=== PATIENT | female | born 1965 | race Caucasian/White ===

== ENCOUNTER 2019-01-29 10:36 | Inpatient (IN) | payer OTHER ==
[~2019-01-29] VITALS: Ht 160 cm; Wt 98.4 kg
[2019-01-29] MEDS ORDERED: ADENOSINE 2 ML ONE (10:48)
[2019-01-29] MEDS ORDERED: ASPIRIN 81 MG TAB PO STA (10:48)
[2019-01-29] MEDS ORDERED: DILTIAZEM 25 MG INJ ONE (10:51)
[2019-01-29] MEDS ORDERED: DILTIAZEM 25 MG INJ IV ONE (11:00)
[2019-01-29] MEDS ORDERED: DILTIAZEM-D5W 125MG/125ML DRIP 125 ML IV SCH (11:00)
[2019-01-29] MEDS ORDERED: ATOR20TA38 PO (12:17)
[2019-01-29] MEDS ORDERED: METF-849 PO (12:17)
[2019-01-29] MEDS ORDERED: LISI40TA3 PO (12:25)
[2019-01-29] MEDS ORDERED: NAPR-688 PO (12:25)
[2019-01-29] MEDS ORDERED: ASPI-903 PO (12:25)
[2019-01-29] MEDS ORDERED: HYDR25TA6 PO (12:25)
[2019-01-29] MEDS ORDERED: ACET1TAB40 PO (12:25)
[2019-01-29] MEDS ORDERED: IBUP-1542 PO (12:25)
--- NOTE | 2019-01-29 13:01 | ERD ---
ER Documentation Chief Complaint Chief Complaint chest pain, dizziness and feeling weak for a couple of weeks now HPI This is a 53-year-old female with a history of atrial fibrillation who underwent ablation back in March 2018. She does have paroxysmal A. fib. She said she felt like she went into A. fib again this morning with heart palpitations and some mild chest pressure. She says this happens frequently. She is already on m edication and is supposed to see a new powder mixer this week for her PAF. No shortness of breath diaphoresis. ROS All systems reviewed and are negative except as per history of present illness. Medications Home Meds Active Scripts Diltiazem Hcl* (Diltiazem XT) 120 Mg Capsule.sa, 120 MG PO DAILY, #30 CAP Prov:XIN ROCKWELL DO 01/29/19 Reported Medications Ibuprofen* (Motrin*) 600 Mg Tab, 600 MG PO Q6H PRN for PAIN, TAB 01/29/19 Acetaminophen with Codeine (Acetaminophen-Cod #3 Tablet) 1 Each Tablet, 1 TAB PO Q6H PRN for PAIN LEVEL 7-10, #7 TAB 01/29/19 Naproxen* (Naproxen*) 500 Mg Tablet, 500 MG PO DAILY, TAB 01/29/19 Aspirin* (Aspirin* Chew) 81 Mg Tab.chew, 81 MG PO DAILY, TAB.CHEW 01/29/19 Aspirin* (Aspirin* Chew) 81 Mg Tab.chew, 81 MG PO DAILY, TAB.CHEW 01/29/19 Hydrochlorothiazide* (Hydrochlorothiazide*) 25 Mg Tab, 25 MG PO DAILY, #30 TAB 01/29/19 Lisinopril* (Lisinopril*) 40 Mg Tablet, 40 MG PO DAILY, #30 TAB 01/29/19 Metformin* (Glucophage*) 500 Mg Tab, 500 MG PO WITH BREAKFAST DINNE, #30 TAB 01/29/19 Atorvastatin Calcium* (Atorvastatin Calcium*) 20 Mg Tablet, 10 MG PO QHS, #30 TAB 01/29/19 Allergies Allergies: Coded Allergies: No Known Allergy (Unverified , 01/29/19) PMhx/Soc Hx Miscellaneous Medical Probl: Yes (htn, tachycardia with ablasion ) Hx Alcohol Use: No Hx Substance Use: No Hx Tobacco Use: No Smoking Status: Never smoker FmHx Family History: No coronary disease Physical Exam Vitals Vital Signs Date Temp Pulse Resp B/P (MAP) Pulse Ox O2 O2 Flow FiO2 Time Delivery Rate 01/29/19 81 18 124/76 98 Nasal 13:54 (92) Cannula 01/29/19 80 18 126/88 98 Nasal 12:49 (101) Cannula 01/29/19 119 20 106/90 98 Room Air 11:28 (95) 01/29/19 Nasal 2 11:01 Cannula 01/29/19 98.3 170 18 137/103 100 10:45 (114) Physical Exam Const: Well-developed, well-nourished Head: Atraumatic, normocephalic Eyes: Normal Conjunctiva, PERRLA, EOMI, normal sclera, no nystagmus ENT: Normal External Ears, Nose and Mouth, moist mucus membranes. Neck: Full range of motion. No meningismus, no lymphadenopathy. Resp: Clear to auscultation bilaterally, no wheezing, rhonchi, rales Cardio: Tachycardia irregular rate and rhythm, no murmurs, S1 S2 present Abd: Soft, non tender x 4, non distended. Normal bowel sounds, no guarding or rebound, no pulsitile abdominal masses or bruits Skin: No petechiae or rashes, no ecchymosis , no maculopapular rash Back: No midline or flank tenderness Ext: No cyanosis, or edema, FROM x 4, normal inspection, neurovascularly intact x 4 Neur: Awake and alert, STR 5/5 x 4, sensation intact x 4, no focal findings, cerebellum intact Psych: Normal Mood and Affect Result Diagram: 01/29/19 1056 01/29/19 1056 Results 24 hrs Laboratory Tests Test 01/29/19 10:56 White Blood Count 9.6 10^3/ul Red Blood Count 5.04 10^6/ul Hemoglobin 13.9 g/dl Hematocrit 42.6 % Mean Corpuscular Volume 84.5 fl Mean Corpuscular Hemoglobin 27.6 pg Mean Corpuscular Hemoglobin Concent 32.6 g/dl Red Cell Distribution Width 14.3 % Platelet Count 427 10^3/UL Mean Platelet Volume 10.0 fl Immature Granulocytes % 0.200 % Neutrophils % 44.5 % Lymphocytes % 47.2 % Monocytes % 6.0 % Eosinophils % 1.3 % Basophils % 0.8 % Nucleated Red Blood Cells % 0.0 /100WBC Immature Granulocytes # 0.020 10^3/ul Neutrophils # 4.3 10^3/ul Lymphocytes # 4.5 10^3/ul Monocytes # 0.6 10^3/ul Eosinophils # 0.1 10^3/ul Basophils # 0.1 10^3/ul Nucleated Red Blood Cells # 0.0 10^3/ul Prothrombin Time 12.4 Sec Prothrombin Time Ratio 1.0 INR International Normalized Ratio 0.91 Activated Partial Thromboplast Time 29.2 Sec Sodium Level 142 mmol/L Potassium Level 4.2 mmol/L Chloride Level 103 mmol/L Carbon Dioxide Level 26 mmol/L Anion Gap 13 Blood Urea Nitrogen 12 mg/dl Creatinine 1.18 mg/dl Est Glomerular Filtrat Rate mL/min 48 mL/min Glucose Level 144 mg/dl Calcium Level 10.9 mg/dl Troponin I < 0.012 ng/ml B-Type Natriuretic Peptide 27 PG/ML Current Medications Medications Dose Sig/Lea Start Time Status Last (Trade) Ordered Route PRN Stop Time Admin Dose Reason Admin Aspirin 162 mg ONCE STAT 01/29/19 DC 01/29/19 (Aspirin) PO 10:48 11:27 01/29/19 10:51 Diltiazem 125 ml @ [id number] IV 01/29/19 01/29/19 HCl 10 mls/hr 11:00 11:27 Diltiazem 20 mg ONCE ONCE 01/29/19 DC 01/29/19 HCl IV 11:00 11:07 (Cardizem Iv) 01/29/19 11:01 Procedures/MDM EKG1: Rate/Rhythm: Atrial fibrillation with rapid ventricular response QRS, ST, QT: NORMAL DC, QRS, QT] Impression: A. fib with RVR EKG2: Rate/Rhythm: Atrial fibrillation with rapid ventricular response QRS, ST, QT: NORMAL DC, QRS, QT] Impression: A. fib with RVR After 2 IV bolus of Cardizem followed by Cardizem drip the patient spontaneously converted: EKG3: Rate/Rhythm: Normal sinus rhythm with PACs, left axis deviation heart rate 82 QRS, ST, QT: NORMAL DC, QRS, QT] Impression: NORMAL EKG Ordering MD: XIN ROCKWELL DO Location: E/R Room/Bed: PROCEDURE: XR Chest. CLINICAL INDICATION: chest pain TECHNIQUE: Single frontal view of the chest was obtained COMPARISON: None FINDINGS: The heart and mediastinum are within normal limits. There is mild elevation of the right diaphragm. The lungs are clear. There is no pleural effusion or pneumothorax. RPTAT: AA IMPRESSION: No acute disease. .Alexander Taylor MD, MD Date Time Electronically viewed and signed by .Alexander Taylor MD, on 01/29/2019 11:11 .S/ CC: XIN ROCKWELL DO [id number] The patient is now in sinus rhythm for a few hours of observation. I spoke with her powder mixer Dr. valencia, and reviewed the case with him. We will put her on diltiazem 120 mg at his suggestion and no anticoagulation at this time, and she needs to follow-up with her powder mixer at [facility] tomorrow, I did relay this information to her Critical Care Time: 30 minutes Treatments/Evaluations: Close monitoring and treatment of unstable vital signs, cardiorespiratory, and neurologic status, while maintaining tight balance of fluid, respiratory, and cardiac interventions. This time includes discussing the case with the patient and the patient's family. This time does not include all procedures stated elsewhere in this record. This time also includes reviewing old records, labs and radiological studies. This time includes examining and re- examining the patient. Additionally, this time also includes arranging care with admitting and consulting physicians. Departure Diagnosis: Primary Impression: Paroxysmal atrial fibrillation with rapid ventricular response Condition: Stable XIN ROCKWELL DO Jan 29, 2019 13:01
[2019-01-29] MEDS ORDERED: DILT120C79 PO (14:18)
[2019-01-29] MEDS ORDERED: morphine 4 MG/ML VIAL IV STA (14:49)
[2019-01-29] MEDS ORDERED: ONDANSETRON 4 MG INJ IV STA (14:49)
[2019-01-29] MEDS ORDERED: ONDANSETRON 4 MG INJ ONE (14:50)
[2019-01-29] MEDS ORDERED: morphine 4 MG/ML VIAL ONE (14:51)
[2019-01-29] MEDS ORDERED: ONDANSETRON 4 MG INJ IV PRN (15:00)
[2019-01-29] MEDS ORDERED: ACETAMINOPHEN 325 MG TAB PO PRN (15:00)
--- NOTE | 2019-01-29 16:33 | HP ---
Date/Time of Note Date/Time of Note DATE: 01/29/19 TIME: 16:25 Assessment/Plan VTE Prophylaxis SCD applied (from Nsg): Yes Pharmacological prophylaxis: heparin Lines/Catheters IV Catheter Type (from Nrsg): Saline Lock Assessment/Plan Hospital Course 53 yo female with h/o A Fib s/p ablation, DMII, hypertension presenting with pal pitations with associated lightheadedness and chest pain, found to have rapid atrial fibrillation Rapid A Fib: - Continue with diltiazem PO - Meets criteria for DOAC - Cardiology consultation pending DMII: - Basal/bolus insulin Hypertension: - Continue home meds Hypercalcemia: - Likely related to HCTZ. Will hold this and monitor CKD II vs COLT: - Monitor creatinine Dc likely tomorrow if stable Result Diagram: 01/29/19 1056 01/29/19 1056 Results 24hrs Laboratory Tests Test 01/29/19 10:56 White Blood Count 9.6 Red Blood Count 5.04 Hemoglobin 13.9 Hematocrit 42.6 Mean Corpuscular Volume 84.5 Mean Corpuscular Hemoglobin 27.6 L Mean Corpuscular Hemoglobin Concent 32.6 Red Cell Distribution Width 14.3 Platelet Count 427 H Mean Platelet Volume 10.0 Immature Granulocytes % 0.200 Neutrophils % 44.5 Lymphocytes % 47.2 Monocytes % 6.0 Eosinophils % 1.3 Basophils % 0.8 Nucleated Red Blood Cells % 0.0 Immature Granulocytes # 0.020 Neutrophils # 4.3 Lymphocytes # 4.5 H Monocytes # 0.6 Eosinophils # 0.1 Basophils # 0.1 Nucleated Red Blood Cells # 0.0 Prothrombin Time 12.4 Prothrombin Time Ratio 1.0 INR International Normalized Ratio 0.91 Activated Partial Thromboplast Time 29.2 Sodium Level 142 Potassium Level 4.2 Chloride Level 103 Carbon Dioxide Level 26 Anion Gap 13 Blood Urea Nitrogen 12 Creatinine 1.18 H Est Glomerular Filtrat Rate mL/min 48 L Glucose Level 144 Calcium Level 10.9 H Troponin I < 0.012 B-Type Natriuretic Peptide 27 HPI/ROS Admit Date/Time Admit Date/Time Hx of Present Illness 53 yo female with h/o A Fib, DMII, HTN presetns with palpitations and chest pain Patient had A FIb ablation March 2018 at [facility]. A Fib has recurred. Over past week she has been having frequent episodes of palpitations which are accompanied by chest pressure and lightheadedness. She had a severe episode t marivel for which she came to the ED. She is not currently taking any antiarrythmic mediations and is only on aspirin 81 daily. She does not complain of angina. Only has chest pain with palpitation episodes. However, she does have chronic pain in her left shoulder, however she says this is unrelated to her presenting complaint. ROS Constitutional: no complaints, improved Eyes: no complaints ENT: no complaints Respiratory: no complaints Cardiovascular: no complaints Gastrointestinal: no complaints Genitourinary: no complaints Musculoskeletal: no complaints Skin: no complaints Neurologic: no complaints Endocrine: no complaints Lymphatic: no complaints Psychological: no complaints, nl mood/affect Immunologic: no complaints PMH/Family/Social Past Medical History Atrial fibrillation Medications Current Medications Diltiazem HCl 125 ml @ 10 mls/hr [id number] IV Last administered on 01/29/19at 11:27; Admin Dose 10 MLS/HR; Start 01/29/19 at 11:00 Ondansetron HCl (Zofran Inj) 4 mg ER BRIDGE PRN IV NAUSEA/VOMITING; Start 01/29/19 at 15:00; Stop 01/30/19 at 14:59 Acetaminophen (Tylenol Tab) 650 mg ER BRIDGE PRN PO .MILD PAIN 1-3 OR TEMP; Start 01/29/19 at 15:00; Stop 01/30/19 at 14:59 Coded Allergies: No Known Allergy (Unverified , 01/29/19) Past Surgical History Past Surgical Hx: no surgical history Family History Significant Family History: no pertinent family hx Social History Alcohol Use: none Smoking Status: Never smoker Drug Use: none Exam/Review of Systems Vital Signs Vitals Vital Signs Date Temp Pulse Resp B/P (MAP) Pulse Ox O2 O2 Flow FiO2 Time Delivery Rate 01/29/19 98.3 63 20 127/68 98 Nasal 16:03 (87) Cannula 01/29/19 2 11:01 Exam Constitutional: alert, oriented, well developed Psych: no complaints, nl mood/affect Head: normocephalic, atraumatic Eyes: nl conjunctiva, EOMI, nl lids, nl sclera, PERRL ENMT: nl external ears & nose, nl lips & teeth, nl nasal mucosa & septum Neck: supple, non-tender Respiratory: clear to auscultation, normal air movement Cardiovascular: regular rate and rhythm, nl pulses Gastrointestinal: soft, nl liver, spleen, non-tender Musculoskeletal: nl extremities to inspection Extremities: normal pulses Neurological: MOLD MECHANIC II-XII intact, nl mental status, nl speech, nl strength Skin: nl turgor; No rash or lesions Lymph: nl lymph nodes BRAULIO CHAMBERLAIN MD Jan 29, 2019 16:33
[2019-01-29] MEDS ORDERED: ACETAMINOPHEN/CODEINE #3 TAB PO PRN (17:00)
[2019-01-29] MEDS ORDERED: DILTIAZEM 30 MG TAB NGT SCH (17:00)
[2019-01-29] MEDS ORDERED: NACL 0.9% 3 ML SYG IV SCH (17:00)
[2019-01-29] MEDS ORDERED: HYDROCODONE/APAP (5/325) TAB PO PRN ×2 (17:00→18:00)
[2019-01-29] MEDS ORDERED: GLUCOSE GEL 15 GRAM TUBE BUCCAL PRN ×2 (17:30)
[2019-01-29] MEDS ORDERED: GLUCOSE GEL 15 GRAM TUBE PO PRN ×4 (17:30)
[2019-01-29] MEDS ORDERED: DEXTROSE 50% 50 ML SYRINGE IV PRN ×4 (17:30)
[2019-01-29] MEDS ORDERED: GLUCAGON 1 MG INJ IM PRN ×2 (17:30)
[2019-01-29] MEDS: INSULIN ASPART [NOVOLOG] 3 ML PEN SC SCH ×2 (18:00→20:53)
[2019-01-29 18:10] VITALS: BP 153/84; PULSE 77; RESP 18
[2019-01-29 18:32] VITALS: Ht 160 cm; Wt 98.4 kg
[2019-01-29 18:35] VITALS: PULSE 79
[2019-01-29 20:00] VITALS: BP 108/75; PULSE 63; PULSE 76; RESP 18
[2019-01-29] MEDS ORDERED: INSULIN GLARGINE [LANTus] (100 UNITS/ML) SYG SC SCH (20:00)
[2019-01-29] MEDS ORDERED: ONDANSETRON 4 MG TAB PO PRN (20:30)
[2019-01-29] MEDS ORDERED: METOPROLOL 5 MG INJ IV PRN (20:30)
[2019-01-29] MEDS: ATORVASTATIN 10 MG TAB PO SCH (20:53)
[2019-01-29] MEDS ORDERED: MECLIZINE 12.5 MG TAB PO ONE (21:30)
[2019-01-30] VITALS (10 sets, daily range): BP systolic 92–117; BP diastolic 50–68; PULSE 55–93; RESP 17–20
[2019-01-30] MEDS ORDERED: SOD CHLORIDE 0.9% 500 ML IV ONE (01:00)
[2019-01-30] MEDS: INSULIN ASPART [NOVOLOG] 3 ML PEN SC SCH ×4 (07:55→20:09)
[2019-01-30] MEDS ORDERED: INFLUENZA VIRUS VACCINE 0.5 ML (DISPENSING) IM* ONE (09:00)
[2019-01-30] MEDS ORDERED: LISINOPRIL 20 MG TAB PO SCH (09:00)
--- NOTE | 2019-01-30 10:21 | CONS ---
Consultation Date/Type/Reason Admit Date/Time Type of Consult Cardiology Date/Time of Note DATE: 01/30/19 TIME: 10:20 Hx of Present Illness 53 yo with parox a. fib - s/p ablation - add ASA 325 now - converted to sinus - f/up with [facility] cardiology whre she had ablation. # [id number] Past Medical History Home Meds Active Scripts Diltiazem Hcl* (Diltiazem XT) 120 Mg Capsule.sa, 120 MG PO DAILY, #30 CAP Prov:TIFFANYFRANCOSHELBYXIN A. DO 01/29/19 Reported Medications Ibuprofen* (Motrin*) 600 Mg Tab, 600 MG PO Q6H PRN for PAIN, TAB 01/29/19 Acetaminophen with Codeine (Acetaminophen-Cod #3 Tablet) 1 Each Tablet, 1 TAB PO Q6H PRN for PAIN LEVEL 7-10, #7 TAB 01/29/19 Naproxen* (Naproxen*) 500 Mg Tablet, 500 MG PO DAILY, TAB 01/29/19 Aspirin* (Aspirin* Chew) 81 Mg Tab.chew, 81 MG PO DAILY, TAB.CHEW 01/29/19 Aspirin* (Aspirin* Chew) 81 Mg Tab.chew, 81 MG PO DAILY, TAB.CHEW 01/29/19 Hydrochlorothiazide* (Hydrochlorothiazide*) 25 Mg Tab, 25 MG PO DAILY, #30 TAB 01/29/19 Lisinopril* (Lisinopril*) 40 Mg Tablet, 40 MG PO DAILY, #30 TAB 01/29/19 Metformin* (Glucophage*) 500 Mg Tab, 500 MG PO WITH BREAKFAST DINNE, #30 TAB 01/29/19 Atorvastatin Calcium* (Atorvastatin Calcium*) 20 Mg Tablet, 10 MG PO QHS, #30 TAB 01/29/19 Medications Current Medications Diltiazem HCl (Cardizem) 30 mg Q8 NGT Last administered on 01/29/19at 18:47; Admin Dose 30 MG; Start 01/29/19 at 17:00; Status Hold IV Flush (NS 3 ml) 3 ml PER PROTOCOL IV ; Start 01/29/19 at 17:00 Acetaminophen/ Hydrocodone Bitart (Aurora (5/325)) 2 tab Q6H PRN PO .SEVERE PAIN 7-10; Start 01/29/19 at 17:00 Insulin Glargine (Lantus) 12 units DAILY@2000 SC Last administered on 01/29/19at 21:09; Admin Dose 12 UNITS; Start 01/29/19 at 20:00 Insulin Aspart (Novolog Insulin Pen) NOVOLOG *MILD* ALGORITHM WITH MEALS BEDTIME SC ; Start 01/29/19 at 18:00 Atorvastatin Calcium (Lipitor) 10 mg QHS PO Last administered on 01/29/19at 20:53; Admin Dose 10 MG; Start 01/29/19 at 21:00 Glucose (Glutose) 15 gm Q15M PRN PO DECREASED GLUCOSE; Start 01/29/19 at 17:30 Glucose (Glutose) 22.5 gm Q15M PRN PO DECREASED GLUCOSE; Start 01/29/19 at 17:30 Dextrose (D50w Syringe) 25 ml Q15M PRN IV DECREASED GLUCOSE; Start 01/29/19 at 17:30 Dextrose (D50w Syringe) 50 ml Q15M PRN IV DECREASED GLUCOSE; Start 01/29/19 at 17:30 Glucagon (Glucagen) 1 mg Q15M PRN IM DECREASED GLUCOSE; Start 01/29/19 at 17:30 Glucose (Glutose) 15 gm Q15M PRN BUCCAL DECREASED GLUCOSE; Start 01/29/19 at 17:30 Miscellaneous Information 1 ea NOTE XX ; Start 01/29/19 at 17:30 Glucose (Glutose) 15 gm Q15M PRN PO DECREASED GLUCOSE; Start 01/29/19 at 17:30 Glucose (Glutose) 22.5 gm Q15M PRN PO DECREASED GLUCOSE; Start 01/29/19 at 17:30 Dextrose (D50w Syringe) 25 ml Q15M PRN IV DECREASED GLUCOSE; Start 01/29/19 at 17:30 Dextrose (D50w Syringe) 50 ml Q15M PRN IV DECREASED GLUCOSE; Start 01/29/19 at 17:30 Glucagon (Glucagen) 1 mg Q15M PRN IM DECREASED GLUCOSE; Start 01/29/19 at 17:30 Glucose (Glutose) 15 gm Q15M PRN BUCCAL DECREASED GLUCOSE; Start 01/29/19 at 17:30 Acetaminophen/ Hydrocodone Bitart (Aurora (5/325)) 1 tab Q6H PRN PO PAIN 7-10; Start 01/29/19 at 18:00 Ondansetron HCl (Zofran Tab) 4 mg Q4 PRN PO NAUSEA AND/OR VOMITING Last administered on 01/29/19at 20:53; Admin Dose 4 MG; Start 01/29/19 at 20:30 Metoprolol Tartrate (Lopressor) 2.5 mg Q6H PRN IV ELEVATED HEART RATE; Start 01/29/19 at 20:30 Allergies: Coded Allergies: No Known Allergy (Unverified , 01/29/19) Past Surgical History Past Surgical Hx: no surgical history Social History Alcohol Use: none Smoking Status: Never smoker Drug Use: none Exam/Review of Systems Vital Signs Vitals Vital Signs Date Temp Pulse Resp B/P (MAP) Pulse Ox O2 O2 Flow FiO2 Time Delivery Rate 01/30/19 57 08:17 01/30/19 Nasal 2.0 07:46 Cannula 01/30/19 97.9 20 92/50 (64) 98 07:14 Intake and Output 01/29/19 01/29/19 01/30/19 1515:00 23:00 07:00 IntakeIntake Total 800 ml BalanceBalance 800 ml Labs Result Diagram: 01/30/19 0657 01/30/19 0657 Results 24hrs Laboratory Tests Test 01/29/19 10:56 01/29/19 18:18 01/29/19 18:54 01/29/19 20:51 White Blood Count 9.6 Red Blood Count 5.04 Hemoglobin 13.9 Hematocrit 42.6 Mean Corpuscular 84.5 Volume Mean Corpuscular 27.6 L Hemoglobin Mean Corpuscular 32.6 Hemoglobin Concent Red Cell 14.3 Distribution Width Platelet Count 427 H Mean Platelet Volume 10.0 Immature 0.200 Granulocytes % Neutrophils % 44.5 Lymphocytes % 47.2 Monocytes % 6.0 Eosinophils % 1.3 Basophils % 0.8 Nucleated Red Blood 0.0 Cells % Immature 0.020 Granulocytes # Neutrophils # 4.3 Lymphocytes # 4.5 H Monocytes # 0.6 Eosinophils # 0.1 Basophils # 0.1 Nucleated Red Blood 0.0 Cells # Prothrombin Time 12.4 Prothrombin Time 1.0 Ratio INR International 0.91 Normalized Ratio Activated 29.2 Partial Thromboplast Time Sodium Level 142 Potassium Level 4.2 Chloride Level 103 Carbon Dioxide Level 26 Anion Gap 13 Blood Urea Nitrogen 12 Creatinine 1.18 H Est Glomerular 48 L Filtrat Rate mL/min Glucose Level 144 Calcium Level 10.9 H Troponin I < 0.012 < 0.012 B-Type Natriuretic 27 Peptide Bedside Glucose 92 127 Test 01/30/19 06:57 01/30/19 08:04 White Blood Count 5.4 # Red Blood Count 4.23 Hemoglobin 11.7 L Hematocrit 37.1 Mean Corpuscular 87.7 Volume Mean Corpuscular 27.7 L Hemoglobin Mean Corpuscular 31.5 L Hemoglobin Concent Red Cell 14.4 Distribution Width Platelet Count 313 # Mean Platelet Volume 9.9 Immature 0.400 Granulocytes % Neutrophils % 47.2 Lymphocytes % 41.4 Monocytes % 7.4 Eosinophils % 2.9 Basophils % 0.7 Nucleated Red Blood 0.0 Cells % Immature 0.020 Granulocytes # Neutrophils # 2.6 Lymphocytes # 2.3 Monocytes # 0.4 Eosinophils # 0.2 Basophils # 0.0 Nucleated Red Blood 0.0 Cells # Sodium Level 143 Potassium Level 4.4 Chloride Level 103 Carbon Dioxide Level 30 Anion Gap 10 Blood Urea Nitrogen 18 Creatinine 1.48 H Est Glomerular 37 L Filtrat Rate mL/min Glucose Level 99 # Hemoglobin A1c 6.4 H Calcium Level 9.9 Total Bilirubin 0.4 Direct Bilirubin 0.00 Indirect Bilirubin 0.4 Aspartate Amino 18 Transf (AST/SGOT) Alanine 11 L Aminotransferase (AL T/SGPT) Alkaline Phosphatase 84 Total Protein 7.0 Albumin 3.9 Globulin 3.10 Albumin/Globulin 1.25 Ratio Thyroid Stimulating 1.140 Hormone (TSH) Bedside Glucose 86 Medications Medications Current Medications Diltiazem HCl (Cardizem) 30 mg Q8 NGT Last administered on 01/29/19at 18:47; Admin Dose 30 MG; Start 01/29/19 at 17:00; Status Hold IV Flush (NS 3 ml) 3 ml PER PROTOCOL IV ; Start 01/29/19 at 17:00 Acetaminophen/ Hydrocodone Bitart (Aurora (5/325)) 2 tab Q6H PRN PO .SEVERE PAIN 7-10; Start 01/29/19 at 17:00 Insulin Glargine (Lantus) 12 units DAILY@2000 SC Last administered on 01/29/19at 21:09; Admin Dose 12 UNITS; Start 01/29/19 at 20:00 Insulin Aspart (Novolog Insulin Pen) NOVOLOG *MILD* ALGORITHM WITH MEALS BEDTIME SC ; Start 01/29/19 at 18:00 Atorvastatin Calcium (Lipitor) 10 mg QHS PO Last administered on 01/29/19at 20:53; Admin Dose 10 MG; Start 01/29/19 at 21:00 Glucose (Glutose) 15 gm Q15M PRN PO DECREASED GLUCOSE; Start 01/29/19 at 17:30 Glucose (Glutose) 22.5 gm Q15M PRN PO DECREASED GLUCOSE; Start 01/29/19 at 17:30 Dextrose (D50w Syringe) 25 ml Q15M PRN IV DECREASED GLUCOSE; Start 01/29/19 at 17:30 Dextrose (D50w Syringe) 50 ml Q15M PRN IV DECREASED GLUCOSE; Start 01/29/19 at 17:30 Glucagon (Glucagen) 1 mg Q15M PRN IM DECREASED GLUCOSE; Start 01/29/19 at 17:30 Glucose (Glutose) 15 gm Q15M PRN BUCCAL DECREASED GLUCOSE; Start 01/29/19 at 17:30 Miscellaneous Information 1 ea NOTE XX ; Start 01/29/19 at 17:30 Glucose (Glutose) 15 gm Q15M PRN PO DECREASED GLUCOSE; Start 01/29/19 at 17:30 Glucose (Glutose) 22.5 gm Q15M PRN PO DECREASED GLUCOSE; Start 01/29/19 at 17:30 Dextrose (D50w Syringe) 25 ml Q15M PRN IV DECREASED GLUCOSE; Start 01/29/19 at 17:30 Dextrose (D50w Syringe) 50 ml Q15M PRN IV DECREASED GLUCOSE; Start 01/29/19 at 17:30 Glucagon (Glucagen) 1 mg Q15M PRN IM DECREASED GLUCOSE; Start 01/29/19 at 17:30 Glucose (Glutose) 15 gm Q15M PRN BUCCAL DECREASED GLUCOSE; Start 01/29/19 at 17:30 Acetaminophen/ Hydrocodone Bitart (Aurora (5/325)) 1 tab Q6H PRN PO PAIN 7-10; Start 01/29/19 at 18:00 Ondansetron HCl (Zofran Tab) 4 mg Q4 PRN PO NAUSEA AND/OR VOMITING Last administered on 01/29/19at 20:53; Admin Dose 4 MG; Start 01/29/19 at 20:30 Metoprolol Tartrate (Lopressor) 2.5 mg Q6H PRN IV ELEVATED HEART RATE; Start 01/29/19 at 20:30 LENSKY,MARLYN MD Jan 30, 2019 10:21
--- NOTE | 2019-01-30 10:53 | CONS ---
DATE OF ADMISSION: 01/29/2019 DATE OF CONSULTATION: 01/30/2019 TYPE OF CONSULTATION: Cardiology. REFERRING PHYSICIAN: Dr. Duckworth. REASON FOR EVALUATION: Atrial fibrillation with rapid perceived response. HISTORY OF PRESENT ILLNESS: The patient is a 53-year-old woman with prior history of atrial fibrilla tion, history of ablation at [facility] in March of this year, comes in hospital now f or evaluation of palpitation. She was noted to be in atrial fibrillation with rapid ventricular resp onse in the emergency department, but she converted to sinus rhythm. Now, the patient is currently h emodynamically stable and in sinus rhythm. She has a follow up with doctor at [facility] whose name she cannot recall. I think for now we will be going to treat conservatively. Continue anticoagulation s trategy and follow expectedly with outside for followup. PAST MEDICAL HISTORY: Hypertension, dyslipidemia, history of diabetes, history of paroxysmal atrial fibrillation status post ablation in [facility] in March of last year. ALLERGIES: NOT KNOWN. SOCIAL HISTORY: She does not smoke, does not drink, does not drink. FAMILY HISTORY: Negative for sudden cardiac or premature coronary artery disease. MEDICATIONS: Here include: 1. Lipitor 10 mg once a day. 2. Metoprolol tartrate 2.5 mg IV. 3. Diltiazem. 4. She was on aspirin prior. REVIEW OF SYSTEMS: CONSTITUTIONAL: No fevers, no chills, no recent weight. HEENT: No changes. CARDIAC: Chest pain reported. RESPIRATORY: Short of breath, acute on chronic. GASTROINTESTINAL: No nausea, vomiting. GENITOURINARY: No dysuria or hematuria. NEUROLOGIC: No focal. HEMATOLOGIC: No easy bruising. PSYCHIATRIC: No history of psychiatric illness. PHYSICAL EXAMINATION: VITAL SIGNS: Temperature is 97.8, heart rate 57 now, blood pressure 92/50. GENERAL: She is well-nourished woman in no acute distress, alert and oriented x3, aware of her condi tion. HEAD: Normocephalic, atraumatic. Eyes anicteric. NECK: Supple. JVD 6 cm. There is no lymphadenopathy, no thyromegaly. HEART: Regular, soft. 1/6 systolic murmur. PMI is minimally displaced. S1, S2. LUNGS: Coarse to base. ABDOMEN: Distended, bowel sounds are present. There is no hepatosplenomegaly. EXTREMITIES: Show no clubbing, cyanosis, or edema. LABORATORY DATA: White blood cell count 5.4, hemoglobin 11.7, platelets 313. Her INR is 1.0. Sodiu m 143, potassium 4.4, BUN 18, creatinine 1.48. Troponin negative 0.012. ASSESSMENT AND PLAN: 1. Paroxysmal atrial fibrillation. The patient is with paroxysmal atrial fibrillation. It appears that she did have an ablation at [facility] in March of last year which did not work. 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 She converted to sinus. I think outpatient for followup w ould be reasonable. 2. Secondary heart state. The patient is in second stage. I will initiate Aspirin 325 mg p.o. righ t now unless there is a contraindication. 3. Diabetes. Patient is on medical management. Continue to monitor closely. We will follow. 4. Premature ventricular contractions. The patient's PACs post-cardioversion, blood pressure low. I am not sure if she will be able to tolerate any significant dose of beta-franchesca at this particular point in time. I would like to thank Dr. Duckworth for referring this patient for my evaluation. Dictated By: MARLYN OH MD ML/NTS Conf#: [id number] DID#: [id number] CC: BRAULIO DUCKWORTH MD; SHAY YANCEY MD;*End*
[2019-01-30] MEDS ORDERED: ACETAMINOPHEN 325 MG TAB PO PRN (11:12)
--- NOTE | 2019-01-30 13:30 | PN ---
Date/Time of Note Date/Time of Note DATE: 01/30/19 TIME: 13:29 Assessment/Plan VTE Prophylaxis Risk score (from Nsg)>0 risk: 1 SCD applied (from Nsg): Yes Pharmacological prophylaxis: heparin Lines/Catheters IV Catheter Type (from Nrsg): Saline Lock Urinary Cath still in place: No Assessment/Plan Hospital Course 53 yo female with h/o A Fib s/p ablation, DMII, hypertension presenting with palpitations with associated lightheadedness and chest pain, found to have rapid atrial fibrillation Rapid A Fib: - Stop diltiazem given adverse reaction. Currently sinus matteo. Will continue to monitor and consider discharge tomorrow on PO metoprolol - Meets criteria for DOAC - Cardiology consultation appreciated DMII: - Basal/bolus insulin Hypertension: - Continue home meds Hypercalcemia: - Likely related to HCTZ. Will hold this and monitor CKD II vs COLT: - Monitor creatinine Dc likely tomorrow if stable Result Diagram: 01/30/19 0657 01/30/19 0657 Results 24hrs Laboratory Tests Test 01/29/19 18:18 01/29/19 18:54 01/29/19 20:51 01/30/19 06:57 Bedside Glucose 92 127 Troponin I < 0.012 White Blood Count 5.4 # Red Blood Count 4.23 Hemoglobin 11.7 L Hematocrit 37.1 Mean Corpuscular 87.7 Volume Mean Corpuscular 27.7 L Hemoglobin Mean Corpuscular 31.5 L Hemoglobin Concent Red Cell 14.4 Distribution Width Platelet Count 313 # Mean Platelet Volume 9.9 Immature 0.400 Granulocytes % Neutrophils % 47.2 Lymphocytes % 41.4 Monocytes % 7.4 Eosinophils % 2.9 Basophils % 0.7 Nucleated Red Blood 0.0 Cells % Immature 0.020 Granulocytes # Neutrophils # 2.6 Lymphocytes # 2.3 Monocytes # 0.4 Eosinophils # 0.2 Basophils # 0.0 Nucleated Red Blood 0.0 Cells # Sodium Level 143 Potassium Level 4.4 Chloride Level 103 Carbon Dioxide Level 30 Anion Gap 10 Blood Urea Nitrogen 18 Creatinine 1.48 H Est Glomerular 37 L Filtrat Rate mL/min Glucose Level 99 # Hemoglobin A1c 6.4 H Calcium Level 9.9 Total Bilirubin 0.4 Direct Bilirubin 0.00 Indirect Bilirubin 0.4 Aspartate Amino 18 Transf (AST/SGOT) Alanine 11 L Aminotransferase (AL T/SGPT) Alkaline Phosphatase 84 Total Protein 7.0 Albumin 3.9 Globulin 3.10 Albumin/Globulin 1.25 Ratio Thyroid Stimulating 1.140 Hormone (TSH) Test 01/30/19 08:04 01/30/19 11:56 Bedside Glucose 86 103 Subjective 24 Hr Interval Summary Free Text/Dictation Had adverse reaction to diltiazem Became hypotensive and nauseous Exam/Review of Systems Exam Vitals Vital Signs Date Temp Pulse Resp B/P (MAP) Pulse Ox O2 O2 Flow FiO2 Time Delivery Rate 01/30/19 93 12:09 01/30/19 98.0 20 108/64 100 11:15 (79) 01/30/19 Nasal 2.0 07:46 Cannula Intake and Output 01/29/19 01/29/19 01/30/19 1515:00 23:00 07:00 IntakeIntake Total 800 ml BalanceBalance 800 ml Constitutional: alert, oriented, well developed Psych: no complaints, nl mood/affect Head: normocephalic, atraumatic Eyes: nl conjunctiva, EOMI, nl lids, nl sclera, PERRL ENMT: nl external ears & nose, nl lips & teeth, nl nasal mucosa & septum Neck: supple, non-tender Respiratory: clear to auscultation, normal air movement Cardiovascular: regular rate and rhythm, nl pulses Gastrointestinal: soft, nl liver, spleen, non-tender Musculoskeletal: nl extremities to inspection, nl gait and stance Extremities: normal pulses 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, nl mental status, nl speech, nl strength Skin: nl turgor; No rash or lesions Lymph: nl lymph nodes Results Results 24hrs Laboratory Tests Test 01/29/19 18:18 01/29/19 18:54 01/29/19 20:51 01/30/19 06:57 Bedside Glucose 92 127 Troponin I < 0.012 White Blood Count 5.4 # Red Blood Count 4.23 Hemoglobin 11.7 L Hematocrit 37.1 Mean Corpuscular 87.7 Volume Mean Corpuscular 27.7 L Hemoglobin Mean Corpuscular 31.5 L Hemoglobin Concent Red Cell 14.4 Distribution Width Platelet Count 313 # Mean Platelet Volume 9.9 Immature 0.400 Granulocytes % Neutrophils % 47.2 Lymphocytes % 41.4 Monocytes % 7.4 Eosinophils % 2.9 Basophils % 0.7 Nucleated Red Blood 0.0 Cells % Immature 0.020 Granulocytes # Neutrophils # 2.6 Lymphocytes # 2.3 Monocytes # 0.4 Eosinophils # 0.2 Basophils # 0.0 Nucleated Red Blood 0.0 Cells # Sodium Level 143 Potassium Level 4.4 Chloride Level 103 Carbon Dioxide Level 30 Anion Gap 10 Blood Urea Nitrogen 18 Creatinine 1.48 H Est Glomerular 37 L Filtrat Rate mL/min Glucose Level 99 # Hemoglobin A1c 6.4 H Calcium Level 9.9 Total Bilirubin 0.4 Direct Bilirubin 0.00 Indirect Bilirubin 0.4 Aspartate Amino 18 Transf (AST/SGOT) Alanine 11 L Aminotransferase (AL T/SGPT) Alkaline Phosphatase 84 Total Protein 7.0 Albumin 3.9 Globulin 3.10 Albumin/Globulin 1.25 Ratio Thyroid Stimulating 1.140 Hormone (TSH) Test 01/30/19 08:04 01/30/19 11:56 Bedside Glucose 86 103 Medications Medication Current Medications IV Flush (NS 3 ml) 3 ml PER PROTOCOL IV ; Start 01/29/19 at 17:00 Acetaminophen/ Hydrocodone Bitart ([place] (5/325)) 2 tab Q6H PRN PO .SEVERE PAIN 7-10; Start 01/29/19 at 17:00 Insulin Aspart (Novolog Insulin Pen) NOVOLOG *MILD* ALGORITHM WITH MEALS BEDTIME SC ; Start 01/29/19 at 18:00 Atorvastatin Calcium (Lipitor) 10 mg QHS PO Last administered on 01/29/19at 20:53; Admin Dose 10 MG; Start 01/29/19 at 21:00 Glucose (Glutose) 15 gm Q15M PRN PO DECREASED GLUCOSE; Start 01/29/19 at 17:30 Glucose (Glutose) 22.5 gm Q15M PRN PO DECREASED GLUCOSE; Start 01/29/19 at 17:30 Dextrose (D50w Syringe) 25 ml Q15M PRN IV DECREASED GLUCOSE; Start 01/29/19 at 17:30 Dextrose (D50w Syringe) 50 ml Q15M PRN IV DECREASED GLUCOSE; Start 01/29/19 at 17:30 Glucagon (Glucagen) 1 mg Q15M PRN IM DECREASED GLUCOSE; Start 01/29/19 at 17:30 Glucose (Glutose) 15 gm Q15M PRN BUCCAL DECREASED GLUCOSE; Start 01/29/19 at 17:30 Miscellaneous Information 1 ea NOTE XX ; Start 01/29/19 at 17:30 Glucose (Glutose) 15 gm Q15M PRN PO DECREASED GLUCOSE; Start 01/29/19 at 17:30 Glucose (Glutose) 22.5 gm Q15M PRN PO DECREASED GLUCOSE; Start 01/29/19 at 17:30 Dextrose (D50w Syringe) 25 ml Q15M PRN IV DECREASED GLUCOSE; Start 01/29/19 at 17:30 Dextrose (D50w Syringe) 50 ml Q15M PRN IV DECREASED GLUCOSE; Start 01/29/19 at 17:30 Glucagon (Glucagen) 1 mg Q15M PRN IM DECREASED GLUCOSE; Start 01/29/19 at 17:30 Glucose (Glutose) 15 gm Q15M PRN BUCCAL DECREASED GLUCOSE; Start 01/29/19 at 17:30 Acetaminophen/ Hydrocodone Bitart ([place] (5/325)) 1 tab Q6H PRN PO PAIN 7-10; Start 01/29/19 at 18:00 Ondansetron HCl (Zofran Tab) 4 mg Q4 PRN PO NAUSEA AND/OR VOMITING Last administered on 01/29/19at 20:53; Admin Dose 4 MG; Start 01/29/19 at 20:30 Metoprolol Tartrate (Lopressor) 2.5 mg Q6H PRN IV ELEVATED HEART RATE; Start 01/29/19 at 20:30 Aspirin (Ecotrin) 325 mg DAILY PO ; Start 01/31/19 at 09:00 Acetaminophen (Tylenol Tab) 650 mg Q6H PRN PO MILD PAIN(1-3)OR ELEVATED TEMP Last administered on 01/30/19at 11:28; Admin Dose 650 MG; Start 01/30/19 at 11:12 Insulin Glargine (Lantus) 8 units DAILY@2000 SC ; Start 01/30/19 at 20:00 BRAULIO CHAMBERLAIN MD Jan 30, 2019 13:30
[2019-01-30] MEDS: ATORVASTATIN 10 MG TAB PO SCH (20:09)
[2019-01-30] MEDS: INSULIN GLARGINE [LANTus] (100 UNITS/ML) SYG SC SCH (21:54)
[2019-01-31] VITALS (12 sets, daily range): BP systolic 107–132; BP diastolic 65–80; PULSE 59–170; RESP 15–20
[2019-01-31] MEDS: INSULIN ASPART [NOVOLOG] 3 ML PEN SC SCH ×4 (07:55→21:00)
[2019-01-31] MEDS ORDERED: ASPIRIN (EC) 325 MG TAB PO SCH (09:00)
--- NOTE | 2019-01-31 14:09 | CONS ---
Assessment/Plan Assessment/Plan Hospital Course (Demo Recall) IMP: 1.PAF-recurrent in hospital, s/p ablation at [facility] 03/31. NL TSH/neg trop x 3 2.HTN 3.HL 4.DM Recc: -Tele -serial ecg's -start BB -start systemic anticoag for elevated chads vasc of 3 -consider amiodarone to maintain SR -will f/u echo Consultation Date/Type/Reason Admit Date/Time Jan 29, 2019 at 15:28 Initial Consult Date 01/30/19 Type of Consult Cardiology Reason for Consultation PAF Requesting Provider: BRAULIO CHAMBERLAIN MD Date/Time of Note DATE: 01/31/19 TIME: 14:05 Exam/Review of Systems Vital Signs Vitals Vital Signs Date Temp Pulse Resp B/P (MAP) Pulse Ox O2 O2 Flow FiO2 Time Delivery Rate 01/31/19 82 12:16 01/31/19 98.0 20 107/74 95 11:24 (85) 01/30/19 Nasal 2.0 07:46 Cannula Intake and Output 01/30/19 01/30/19 01/31/19 1515:00 23:00 07:00 IntakeIntake Total 950 ml 600 ml BalanceBalance 950 ml 600 ml Exam Exam Review of Systems: CONSTITUTIONAL: No fevers, chills. PULMONARY: No sob CARDIOVASCULAR: No chest pain/palpitations GASTROINTESTINAL: No nausea/vomiting. GENITOURINARY: No hematuria/dysuria. MUSCULOSKELETAL: No myagias/arthalgias. PSYCHIATRIC: The patient denies depression. NEUROLOGIC: No weakness Constitutional: alert Psych: no complaints Head: normocephalic ENMT: mucosa pink and moist Neck: supple, jvd (9 cm water) Respiratory: diminished breath sounds Cardiovascular: regular rate and rhythm Gastrointestinal: soft, non-tender Musculoskeletal: muscle tone (normal) Extremities: edema (normal) Neurological: other (No focal deficits) Labs Result Diagram: 01/30/19 0657 01/30/19 0657 Results 24hrs Laboratory Tests Test 01/30/19 17:33 01/30/19 20:08 01/31/19 07:52 01/31/19 11:47 Bedside Glucose 118 128 105 90 Medications Medications Current Medications IV Flush (NS 3 ml) 3 ml PER PROTOCOL IV ; Start 01/29/19 at 17:00 Acetaminophen/ Hydrocodone Bitart ([place] (5/325)) 2 tab Q6H PRN PO .SEVERE PAIN 7-10; Start 01/29/19 at 17:00 Insulin Aspart (Novolog Insulin Pen) NOVOLOG *MILD* ALGORITHM WITH MEALS BEDTIME SC ; Start 01/29/19 at 18:00 Atorvastatin Calcium (Lipitor) 10 mg QHS PO Last administered on 01/30/19at 20:09; Admin Dose 10 MG; Start 01/29/19 at 21:00 Glucose (Glutose) 15 gm Q15M PRN PO DECREASED GLUCOSE; Start 01/29/19 at 17:30 Glucose (Glutose) 22.5 gm Q15M PRN PO DECREASED GLUCOSE; Start 01/29/19 at 17:30 Dextrose (D50w Syringe) 25 ml Q15M PRN IV DECREASED GLUCOSE; Start 01/29/19 at 17:30 Dextrose (D50w Syringe) 50 ml Q15M PRN IV DECREASED GLUCOSE; Start 01/29/19 at 17:30 Glucagon (Glucagen) 1 mg Q15M PRN IM DECREASED GLUCOSE; Start 01/29/19 at 17:30 Glucose (Glutose) 15 gm Q15M PRN BUCCAL DECREASED GLUCOSE; Start 01/29/19 at 17:30 Miscellaneous Information 1 ea NOTE XX ; Start 01/29/19 at 17:30 Glucose (Glutose) 15 gm Q15M PRN PO DECREASED GLUCOSE; Start 01/29/19 at 17:30 Glucose (Glutose) 22.5 gm Q15M PRN PO DECREASED GLUCOSE; Start 01/29/19 at 17:30 Dextrose (D50w Syringe) 25 ml Q15M PRN IV DECREASED GLUCOSE; Start 01/29/19 at 17:30 Dextrose (D50w Syringe) 50 ml Q15M PRN IV DECREASED GLUCOSE; Start 01/29/19 at 17:30 Glucagon (Glucagen) 1 mg Q15M PRN IM DECREASED GLUCOSE; Start 01/29/19 at 17:30 Glucose (Glutose) 15 gm Q15M PRN BUCCAL DECREASED GLUCOSE; Start 01/29/19 at 17:30 Acetaminophen/ Hydrocodone Bitart ([place] (5/325)) 1 tab Q6H PRN PO PAIN 7-10; Start 01/29/19 at 18:00 Ondansetron HCl (Zofran Tab) 4 mg Q4 PRN PO NAUSEA AND/OR VOMITING Last administered on 01/29/19at 20:53; Admin Dose 4 MG; Start 01/29/19 at 20:30 Metoprolol Tartrate (Lopressor) 2.5 mg Q6H PRN IV ELEVATED HEART RATE; Start 01/29/19 at 20:30 Aspirin (Ecotrin) 325 mg DAILY PO Last administered on 01/31/19 08:27; Admin Dose 325 MG; Start 01/31/19 at 09:00 Acetaminophen (Tylenol Tab) 650 mg Q6H PRN PO MILD PAIN(1-3)OR ELEVATED TEMP Last administered on 01/30/19 11:28; Admin Dose 650 MG; Start 01/30/19 at 11:12 Insulin Glargine (Lantus) 8 units DAILY@2000 SC Last administered on 01/30/19 21:54; Admin Dose 8 UNITS; Start 01/30/19 at 20:00 SHAY YANCEY 20, 2019 14:09
--- NOTE | 2019-01-31 16:08 | RADRPT ---
Echocardiogram Report Patient Name: ISAAC VÁSQUEZPatient ID: [id number] : 1965 (54y )Study Date: 01/30/2019 1:06:46 PM Gender: FAccession #: [id number] Tech: ME Location: Ref.Physician: BRAULIO CHAMBERLAIN Height(Cm): BSA: Weight(Kg): Quality: GoodAccount #: Procedures: Echocardiographic Report: Transthoracic echocardiogram with complete 2D, M-Mode, and doppler examination. Indications: Atrial Fibrillation. Measurements: 2D/M Mode Doppler Measurement Value Normal Range Measurement Value Normal Range LVIDd 2D 4.9 [ 3.8 - 5.2 ] cm AV Peak Sarbjit 206.0 [ 100.0 - 170.0 ] cm/sec LVIDs 2D 3.3 [ 2.2 - 3.5 ] cm AV Peak PG 17.0 [ 2.0 - 9.0 ] mmHg LVPWd 2D 1.0 [ 0.6 - 0.9 ] cm LVOT Peak Sarbjit 135.0 [ 70.0 - 110.0 ] cm/sec IVSd 2D 1.0 [ 0.6 - 0.9 ] cm LVOT Peak PG 7.0 [ 2.0 - 6.0 ] mmHg IVS/LVPW 2D 1.0 ratio MV E Peak Sarbjit 0.7 [ 60.0 - 130.0 ] cm/sec AoR Diam 2D 2.6 [ 2.3 - 3.1 ] cm MV A Peak Sarbjit 1.2 [ 100.0 - 120.0 ] cm/sec LA/Ao 2D 2 ratio MV E/A 0.6 [ 0.8 - 1.5 ] ratio LA Dimen 2D 4.0 [ 2.7 - 3.8 ] cm MV Decel Time 218 [ 104 - 258 ] msec Lat E` Sarbjit 0.1 [ 10.0 - 15.0 ] cm/sec Med E` Sarbjit 0.1 cm/sec MV E/A 0.6 [ 0.8 - 1.5 ] ratio TR Peak Sarbjit 238.0 [ 100.0 - 280.0 ] cm/sec TR Peak PG 23.0 mmHg RVSP 26.0 [ 10.0 - 36.0 ] mmHg RA Pressure 3.0 mmHg Findings: Left Ventricle: Normal left ventricular systolic function. Normal left ventricular cavity size. Normal left ventricular wall thickness. Ejection fraction is visually estimated at 55-60 %. Tissue Doppler/Mitral Doppler indices are consistent with impaired relaxation (Stage I diastolic dysfunction). Right Ventricle: Normal right ventricular size. Normal right ventricular systolic function. Left Atrium: There is mild enlargement of left atrium. Right Atrium: The right atrium is normal in size. Mitral Valve: Mitral valve leaflets appear mildly thickened. Mild mitral annular calcification. Trace mitral regurgitation. Aortic Valve: Aortic valve Max velocity 2.06 m/sec. Max PG 17.00 mmHg. Aortic sclerosis without significant stenosis. Trace aortic valve regurgitation. Tricuspid Valve: Normal appearance of the tricuspid valve. Estimated peak PA systolic pressure 26 mmHg. There is trace tricuspid regurgitation. Pulmonic Valve: Normal pulmonic valve appearance. Pericardium: Normal pericardium with no significant pericardial effusion. Aorta: Normal aortic root. IVC: Normal size and normal respiratory collapse consistent with normal right atrial pressure. Conclusions: Normal left ventricular systolic function. Normal left ventricular cavity size. Normal left ventricular wall thickness. Ejection fraction is visually estimated at 55-60 %. Tissue Doppler/Mitral Doppler indices are consistent with impaired relaxation (Stage I diastolic dysfunction). ). Mitral valve leaflets appear mildly thickened. Mild mitral annular calcification. Trace mitral regurgitation. Normal appearance of the tricuspid valve. Estimated peak PA systolic pressure 26 mmHg. There is trace tricuspid regurgitation. Electronically Signed By: Bin Wheeler 2019-01-31 16:07:47 PDT
--- NOTE | 2019-01-31 17:23 | PN ---
Date/Time of Note Date/Time of Note DATE: 01/31/19 TIME: 17:22 Assessment/Plan VTE Prophylaxis Risk score (from Nsg)>0 risk: 1 SCD applied (from Nsg): Yes Pharmacological prophylaxis: heparin Lines/Catheters IV Catheter Type (from Nrsg): Saline Lock Urinary Cath still in place: No Assessment/Plan Hospital Course 53 yo female with h/o A Fib s/p ablation, DMII, hypertension presenting with palpitations with associated lightheadedness and chest pain, found to have rapid atrial fibrillation Rapid A Fib: - Stopped diltiazem given adverse reaction. However then RVR recurred. Startin g metoprolol today - Meets criteria for DOAC - Cardiology consultation appreciated DMII: - Basal/bolus insulin Hypertension: - Continue home meds except for HCTZ which she does not appear to require as she is normotensive Hypercalcemia: - Likely related to HCTZ. Will hold this and monitor CKD II vs COLT: - Monitor creatinine Dc likely tomorrow if stable Result Diagram: 01/30/19 0657 01/30/19 0657 Results 24hrs Laboratory Tests Test 01/30/19 17:33 01/30/19 20:08 01/31/19 07:52 01/31/19 11:47 Bedside Glucose 118 128 105 90 Subjective 24 Hr Interval Summary Free Text/Dictation Symptoms improved. Had A Fib to 170s overnight. Today she is being started on beta franchesca and AC by Dr Wheeler Exam/Review of Systems Exam Vitals Vital Signs Date Temp Pulse Resp B/P (MAP) Pulse Ox O2 O2 Flow FiO2 Time Delivery Rate 01/31/19 83 16:11 01/31/19 98.6 20 131/80 97 15:14 (97) 01/30/19 Nasal 2.0 07:46 Cannula Intake and Output 01/30/19 01/30/19 01/31/19 1515:00 23:00 07:00 IntakeIntake Total 950 ml 600 ml BalanceBalance 950 ml 600 ml Constitutional: alert, oriented, well developed Psych: no complaints, nl mood/affect Head: normocephalic, atraumatic Eyes: nl conjunctiva, EOMI, nl lids, nl sclera, PERRL ENMT: nl external ears & nose, nl lips & teeth, nl nasal mucosa & septum Neck: supple, non-tender Respiratory: clear to auscultation, normal air movement Cardiovascular: regular rate and rhythm, nl pulses Gastrointestinal: soft, nl liver, spleen, non-tender Musculoskeletal: nl extremities to inspection, nl gait and stance Extremities: normal pulses 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, nl mental status, nl speech, nl strength Skin: nl turgor; No rash or lesions Lymph: nl lymph nodes Results Results 24hrs Laboratory Tests Test 01/30/19 17:33 01/30/19 20:08 01/31/19 07:52 01/31/19 11:47 Bedside Glucose 118 128 105 90 Medications Medication Current Medications IV Flush (NS 3 ml) 3 ml PER PROTOCOL IV ; Start 01/29/19 at 17:00 Acetaminophen/ Hydrocodone Bitart ([employer] (5/325)) 2 tab Q6H PRN PO .SEVERE PAIN 7-10; Start 01/29/19 at 17:00 Insulin Aspart (Novolog Insulin Pen) NOVOLOG *MILD* ALGORITHM WITH MEALS BEDTIME SC ; Start 01/29/19 at 18:00 Atorvastatin Calcium (Lipitor) 10 mg QHS PO Last administered on 01/30/19at 20:09; Admin Dose 10 MG; Start 01/29/19 at 21:00 Glucose (Glutose) 15 gm Q15M PRN PO DECREASED GLUCOSE; Start 01/29/19 at 17:30 Glucose (Glutose) 22.5 gm Q15M PRN PO DECREASED GLUCOSE; Start 01/29/19 at 17:30 Dextrose (D50w Syringe) 25 ml Q15M PRN IV DECREASED GLUCOSE; Start 01/29/19 at 17:30 Dextrose (D50w Syringe) 50 ml Q15M PRN IV DECREASED GLUCOSE; Start 01/29/19 at 17:30 Glucagon (Glucagen) 1 mg Q15M PRN IM DECREASED GLUCOSE; Start 01/29/19 at 17:30 Glucose (Glutose) 15 gm Q15M PRN BUCCAL DECREASED GLUCOSE; Start 01/29/19 at 17:30 Miscellaneous Information 1 ea NOTE XX ; Start 01/29/19 at 17:30 Glucose (Glutose) 15 gm Q15M PRN PO DECREASED GLUCOSE; Start 01/29/19 at 17:30 Glucose (Glutose) 22.5 gm Q15M PRN PO DECREASED GLUCOSE; Start 01/29/19 at 17:30 Dextrose (D50w Syringe) 25 ml Q15M PRN IV DECREASED GLUCOSE; Start 01/29/19 at 17:30 Dextrose (D50w Syringe) 50 ml Q15M PRN IV DECREASED GLUCOSE; Start 01/29/19 at 17:30 Glucagon (Glucagen) 1 mg Q15M PRN IM DECREASED GLUCOSE; Start 01/29/19 at 17:30 Glucose (Glutose) 15 gm Q15M PRN BUCCAL DECREASED GLUCOSE; Start 01/29/19 at 17:30 Acetaminophen/ Hydrocodone Bitart ([employer] (5/325)) 1 tab Q6H PRN PO PAIN 7-10; Start 01/29/19 at 18:00 Ondansetron HCl (Zofran Tab) 4 mg Q4 PRN PO NAUSEA AND/OR VOMITING Last administered on 01/29/19at 20:53; Admin Dose 4 MG; Start 01/29/19 at 20:30 Metoprolol Tartrate (Lopressor) 2.5 mg Q6H PRN IV ELEVATED HEART RATE; Start 01/29/19 at 20:30 Acetaminophen (Tylenol Tab) 650 mg Q6H PRN PO MILD PAIN(1-3)OR ELEVATED TEMP Last administered on 01/30/19at 11:28; Admin Dose 650 MG; Start 01/30/19 at 11:12 Insulin Glargine (Lantus) 8 units DAILY@2000 SC Last administered on 01/30/19at 21:54; Admin Dose 8 UNITS; Start 01/30/19 at 20:00 Apixaban (Eliquis) 5 mg BID PO ; Start 01/31/19 at 21:00 Metoprolol Tartrate (Lopressor) 25 mg BID PO ; Start 01/31/19 at 21:00 BRAULIO CHAMBERLAIN MD Jan 31, 2019 17:23
[2019-01-31] MEDS: APIXABAN 5 MG TABLET PO SCH (20:12)
[2019-01-31] MEDS: ATORVASTATIN 10 MG TAB PO SCH (20:12)
[2019-01-31] MEDS: METOPROLOL 25 MG TAB PO SCH (20:13)
[2019-01-31] MEDS: INSULIN GLARGINE [LANTus] (100 UNITS/ML) SYG SC SCH (21:03)
[2019-02-01] VITALS: PULSE 59
[2019-02-01 04:00] VITALS: PULSE 51; PULSE 57
[2019-02-01 04:03] VITALS: BP 109/72; PULSE 69; RESP 16
[2019-02-01 07:15] VITALS: BP 130/84; PULSE 62; RESP 19
[2019-02-01] MEDS: INSULIN ASPART [NOVOLOG] 3 ML PEN SC SCH ×2 (07:54→11:50)
[2019-02-01 08:34] VITALS: PULSE 58
[2019-02-01] MEDS: APIXABAN 5 MG TABLET PO SCH (08:49)
[2019-02-01] MEDS: METOPROLOL 25 MG TAB PO SCH (08:50)
[2019-02-01 11:31] VITALS: BP 126/94; PULSE 73; RESP 19
[2019-02-01] MEDS ORDERED: APIX5TAB PO (11:51)
[2019-02-01] MEDS ORDERED: METO-448 PO (11:51)
--- NOTE | 2019-02-01 13:29 | DS ---
Date/Time of Note Date/Time of Note DATE: 02/01/19 TIME: 13:23 Discharge Summary Admission/Discharge Info Admit Date/Time Jan 29, 2019 at 15:28 Discharge Date/Time Discharge Diagnosis Atrial fibrillation Patient Condition: Stable Hx of Present Illness 53 yo female with h/o A Fib, DMII, HTN presetns with palpitations and chest pain Patient had A FIb ablation [address] [facility]. A Fib has recurred. Over past week she has been having frequent episodes of palpitations which are accompanied by chest pressure and lightheadedness. She had a severe episode today for which she came to the ED. She is not currently taking any antiarrythmic mediations and is only on aspirin 81 daily. She does not complain of angina. Only has chest pain with palpitation episodes. However, she does have chronic pain in her left shoulder, however she says this is unrelated to her presenting complaint. Hospital Course 53 yo female with h/o A Fib s/p ablation, DMII, hypertension presenting with palpitations with associated lightheadedness and chest pain, found to have rapid atrial fibrillation She was started on a diltiazem drip in the ED. Then given diltiazem PO. This caused symptomatic hypotension so it was then held. She was monitored off of chelly blockers and episodic RVR occured. At this point metoprolol was intiated with good control. She was prescribed 25 lopressor BID and Apixaban to take as an outpatient She was advsied to stop taking lisinopril and HCTZ as she is normotensive off of them and they had caused COLT and mild hypercalcemia. She will follow up in coming weeks with cardiology. Home Meds Active Scripts Metoprolol Tartrate* (Lopressor*) 25 Mg Tab, 25 MG PO BID for 60 Days, #120 TAB Prov:BRAULIO CHAMBELRAIN MD 02/01/19 Apixaban* (Eliquis*) 5 Mg Tablet, 5 MG PO BID for 60 Days, #120 TAB 4 Refills Prov:BRAULIO CHAMBERLAIN MD 02/01/19 Reported Medications Metformin* (Glucophage*) 500 Mg Tab, 500 MG PO WITH BREAKFAST DINNE, #30 TAB 01/29/19 Atorvastatin Calcium* (Atorvastatin Calcium*) 20 Mg Tablet, 10 MG PO QHS, #30 TAB 01/29/19 Discontinued Reported Medications Ibuprofen* (Motrin*) 600 Mg Tab, 600 MG PO Q6H PRN for PAIN, TAB 01/29/19 Acetaminophen with Codeine (Acetaminophen-Cod #3 Tablet) 1 Each Tablet, 1 TAB PO Q6H PRN for PAIN LEVEL 7-10, #7 TAB 01/29/19 Naproxen* (Naproxen*) 500 Mg Tablet, 500 MG PO DAILY, TAB 01/29/19 Aspirin* (Aspirin* Chew) 81 Mg Tab.chew, 81 MG PO DAILY, TAB.CHEW 01/29/19 Aspirin* (Aspirin* Chew) 81 Mg Tab.chew, 81 MG PO DAILY, TAB.CHEW 01/29/19 Hydrochlorothiazide* (Hydrochlorothiazide*) 25 Mg Tab, 25 MG PO DAILY, #30 TAB 01/29/19 Lisinopril* (Lisinopril*) 40 Mg Tablet, 40 MG PO DAILY, #30 TAB 01/29/19 Discontinued Scripts Diltiazem Hcl* (Diltiazem XT) 120 Mg Capsule.sa, 120 MG PO DAILY, #30 CAP Prov:XIN ROCKWELL DO 01/29/19 Primary Care Provider Care Physician No Primary Pending Labs Laboratory Tests Test 01/31/19 17:34 01/31/19 20:11 02/01/19 07:51 02/01/19 11:56 Bedside 99 140 108 120 Glucose mg/dL (70-220) mg/dL (70-220) mg/dL (70-220) mg/dL (70-220) BRAULIO CHAMBERLAIN MD Feb 01, 2019 13:29
== END 2019-02-01 13:10 | disposition home or self-care (01) | DRG 309 ==
LOC: E/R 10:36 → TEL 14:56 → OBSVTOIN 15:28 → CANRESERV 16:33
PROVIDERS: ADMIT Internal Medicine; ATTEND Internal Medicine
DX: I48.0 Paroxysmal atrial fibrillation (principal); N17.9 Acute kidney failure, unspecified; I10 Essential (primary) hypertension; R00.0 Tachycardia, unspecified; E11.8 Type 2 diabetes mellitus with unspecified complications; E83.52 Hypercalcemia; Z79.82 Long term (current) use of aspirin; Z79.84 Long term (current) use of oral hypoglycemic drugs
CPT/HCPCS: 36415; 71045; 80048; 80053; 82962; 83036; 83880; 84443; 84484; 85025; 85610; 85730; 90686; 93005; 93306; 96365; 96366; 96375; G0378; J0153; J1815; J2270; J2405; J7040

== ENCOUNTER 2019-02-13 09:57 | Inpatient (IN) | payer OTHER ==
[~2019-02-13] VITALS: Ht 160 cm; Wt 102.0 kg
[~2019-02-13 09:57] MED LIST: APIX5TAB PO; ATOR20TA38 PO; METF-849 PO; METO-448 PO
[2019-02-13] MEDS ORDERED: SOD CHLORIDE 0.9% 1,000 ML IV STA (10:13)
[2019-02-13] MEDS ORDERED: IODIXANOL LOCM 100 ML BTL ONE (10:17)
[2019-02-13] MEDS ORDERED: SOD CHLORIDE 0.9% 100 ML ONE (10:17)
[2019-02-13] MEDS ORDERED: LOSA50TA14 PO (10:33)
--- NOTE | 2019-02-13 10:54 | ERD ---
ER Documentation Chief Complaint Chief Complaint LEFT SIDE BODY TINGLING SENSATION ONSET LAST NIGHT HPI This is a patient who is 54 years old who is admitted to the hospital 2 weeks ago with new onset A. fib and is taking an anticoagulant but she is not sure which one she does not know if it is Coumadin Eliquis or Xarelto. She stated that around 5:36 PM yesterday she noticed that her left arm and leg started to feel tingly but not week. She says she tried to wait and see if it would go away and went ahead and went to bed last night. When she woke this morning at around 5:30 AM to go to the restroom she was walking to the bathroom and she noticed that her left arm and leg felt weak. 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 No slurred speech or headache or facial droop. Her last creatinine is 1.48 ROS All systems reviewed and are negative except as per history of present illness. Medications Home Meds Active Scripts Metoprolol Tartrate* (Lopressor*) 25 Mg Tab, 25 MG PO BID for 60 Days, #120 TAB Prov:BRAULIO CHAMBERLAIN MD 02/01/19 Apixaban* (Eliquis*) 5 Mg Tablet, 5 MG PO BID for 60 Days, #120 TAB 4 Refills Prov:BRAULIO CHAMBERLAIN MD 02/01/19 Reported Medications Losartan Potassium* (Losartan Potassium*) 50 Mg Tablet, 50 MG PO DAILY, TAB 02/13/19 Metformin* (Glucophage*) 500 Mg Tab, 500 MG PO WITH BREAKFAST DINNE, #30 TAB 01/29/19 Atorvastatin Calcium* (Atorvastatin Calcium*) 20 Mg Tablet, 10 MG PO QHS, #30 TAB 01/29/19 Allergies Allergies: Coded Allergies: No Known Allergy (Unverified , 02/13/19) PMhx/Soc History of Surgery: Yes (cardiac ablation) Anesthesia Reaction: No Hx Neurological Disorder: No Hx Respiratory Disorders: Yes (Ashtma) Hx Cardiac Disorders: Yes (HTN, tachycardia, afib) Hx Psychiatric Problems: No Hx Miscellaneous Medical Probl: No Hx Alcohol Use: No Hx Substance Use: No Hx Tobacco Use: No FmHx Family History: No coronary disease Physical Exam Vitals Vital Signs Date Temp Pulse Resp B/P (MAP) Pulse Ox O2 O2 Flow FiO2 Time Delivery Rate 02/13/19 97.7 66 18 178/94 99 10:00 (122) Physical Exam Const: Well-developed, well-nourished Head: Atraumatic, normocephalic Eyes: Normal Conjunctiva, PERRLA, EOMI, normal sclera, no nystagmus ENT: Normal External Ears, Nose and Mouth, moist mucus membranes. Neck: Full range of motion. No meningismus, no lymphadenopathy. Resp: Clear to auscultation bilaterally, no wheezing, rhonchi, rales Cardio: Regular rate and rhythm, no murmurs, S1 S2 present Abd: Soft, non tender x 4, non distended. Normal bowel sounds, no guarding or rebound, no pulsitile abdominal masses or bruits Skin: No petechiae or rashes, no ecchymosis , no maculopapular rash Back: No midline or flank tenderness Ext: No cyanosis, or edema, FROM x 4, normal inspection, neurovascularly intact x 4 Neur: Awake and alert, left side on the arm and leg has some subjective tingling with some very mild weakness strength is 4 out of 5 cerebellum intact Psych: Normal Mood and Affect Result Diagram: 02/13/19 1015 02/13/19 1015 Results 24 hrs Laboratory Tests Test 02/13/19 10:15 02/13/19 10:34 White Blood Count 6.9 10^3/ul Red Blood Count 4.53 10^6/ul Hemoglobin 12.4 g/dl Hematocrit 38.5 % Mean Corpuscular Volume 85.0 fl Mean Corpuscular Hemoglobin 27.4 pg Mean Corpuscular Hemoglobin Concent 32.2 g/dl Red Cell Distribution Width 14.2 % Platelet Count 332 10^3/UL Mean Platelet Volume 9.9 fl Immature Granulocytes % 0.300 % Neutrophils % 56.0 % Lymphocytes % 35.8 % Monocytes % 5.5 % Eosinophils % 1.7 % Basophils % 0.7 % Nucleated Red Blood Cells % 0.0 /100WBC Immature Granulocytes # 0.020 10^3/ul Neutrophils # 3.8 10^3/ul Lymphocytes # 2.5 10^3/ul Monocytes # 0.4 10^3/ul Eosinophils # 0.1 10^3/ul Basophils # 0.1 10^3/ul Nucleated Red Blood Cells # 0.0 10^3/ul Prothrombin Time 14.5 Sec Prothrombin Time Ratio 1.1 INR International Normalized Ratio 1.12 Activated Partial Thromboplast Time 36.3 Sec Sodium Level 141 mmol/L Potassium Level 4.2 mmol/L Chloride Level 104 mmol/L Carbon Dioxide Level 27 mmol/L Anion Gap 10 Blood Urea Nitrogen 9 mg/dl Creatinine 1.03 mg/dl Est Glomerular Filtrat Rate mL/min 56 mL/min Glucose Level 112 mg/dl Calcium Level 10.1 mg/dl Creatine Kinase 72 IU/L Creatine Kinase Index Pending Creatinine Kinase MB (Mass) Pending Troponin I Pending Triglycerides Level 232 mg/dl Cholesterol Level 207 mg/dl LDL Cholesterol, Calculated 106 mg/dl HDL Cholesterol 55 mg/dl Cholesterol/HDL Ratio 3.7 RATIO Ethyl Alcohol Level < 10.0 mg/dl Bedside Glucose 107 mg/dL Current Medications Medications Dose Sig/Lea Start Time Status Last (Trade) Ordered Route PRN Stop Time Admin Dose Reason Admin Sodium 1,000 ml @ Q1H STAT 02/13/19 Chloride 1,000 mls/hr IV 10:13 02/13/19 11:12 IV Flush 10 ml STK-MED 02/13/19 DC (NS 10 ml) ONCE .ROUTE 10:17 02/13/19 10:18 Sodium 100 ml @ ud STK-MED 02/13/19 DC Chloride ONCE .ROUTE 10:17 02/13/19 10:18 Iodixanol 100 ml STK-MED 02/13/19 DC (Visipaque ONCE .ROUTE 10:17 02/13/19 Loc) 10:18 Procedures/MDM Patient: ISAAC VÁSQUEZ : 1965 Age: 54 Sex: F [id number] DOS: 02/13/19 1013 Ordering MD: JOHN ROCKWELL DO Location: E/R Room/Bed: PROCEDURE: CT Brain without contrast. CLINICAL INDICATION: Code stroke TECHNIQUE: A CT of the brain was performed on a Parallocity CT scanner utilizing axial imaging from the skull base through the vertex without IV contrast. Multiplanar reformatted images were made. Images were reviewed on a PACS workstation. The CTDIvol is 48.05 mGy and the DLP is 798.83 mGycm. DICOM images are available. One of the following 3 dose reduction techniques were used during this CT exam ination: 1) Automated exposure control 2) Adjustment of the mA +/- kV according to patient size or 3) Use of iterative reconstruction technique COMPARISON: None FINDINGS: There is no intracranial hemorrhage, mass effect, or midline shift. No extra- axial fluid collection is seen. The ventricles and sulci are normal in size and configuration. The density of the brain is normal, and the dominguez white matter differentiation appears well-preserved. Mild vascular calcifications are present of the intracranial internal carotid arteries. The visualized scalp and calvarium are normal. The bilateral orbits are normal. The bilateral paranasal sinuses, mastoid air cells and middle ear cavities are clear. IMPRESSION: 1. No CT evidence for acute infarcts, hemorrhage, or acute intracranial pathology. 2. Normal noncontrast head CT 3. Mild atherosclerotic vascular disease. Critical finding A call report was made to John Rockwlel at 02/13/2019 10:25:04 AM following the completion of the examination by the undersigned. RPTAT: HDC .Maria Alejandra Corona MD, MD Date Time Electronically viewed and signed by .Maria Alejandra Corona MD, MD on 02/13/2019 10:25 .C/ CC: JOHN ROCKWELL DO [id number] EKG: Rate/Rhythm: Normal sinus rhythm with sinus arrhythmia heart rate 67 QRS, ST, QT: NORMAL MN, QRS, QT] Impression: NORMAL EKG Spoke with telemetry neurologist recommended no CT Kylah at this time but did get an MRI/MRA and admit to the hospital and recommends adding baby aspirin to her Eliquis 5 mg twice daily to help with some more the small vessel disease issue. Will admit for stroke workup Departure Diagnosis: Primary Impression: CVA (cerebral vascular accident) CVA mechanism: unspecified Qualified Codes: I63.9 - Cerebral infarction, unspecified Condition: Stable JOHN ROCKWELL DO Feb 13, 2019 10:54
[2019-02-13] MEDS ORDERED: ONDANSETRON 4 MG INJ IV PRN (11:00)
[2019-02-13] MEDS ORDERED: SOD CHLORIDE 0.9% 1,000 ML IV SCH (11:00)
[2019-02-13] MEDS ORDERED: ACETAMINOPHEN 325 MG TAB PO PRN (11:00)
[2019-02-13] MEDS ORDERED: NICARDipine HCL 30 MG CAPSULE PO ONE (11:30)
[2019-02-13 14:53] VITALS: BP 169/84; PULSE 63; RESP 22
[2019-02-13 15:15] VITALS: Ht 160 cm; Wt 102.0 kg
[2019-02-13] MEDS ORDERED: GLUCOSE GEL 15 GRAM TUBE PO PRN ×2 (15:30)
[2019-02-13] MEDS ORDERED: GLUCOSE GEL 15 GRAM TUBE BUCCAL PRN (15:30)
[2019-02-13] MEDS ORDERED: NACL 0.9% 3 ML SYG IV SCH (15:30)
[2019-02-13] MEDS ORDERED: DEXTROSE 50% 50 ML SYRINGE IV PRN ×2 (15:30)
[2019-02-13] MEDS ORDERED: GLUCAGON 1 MG INJ IM PRN (15:30)
--- NOTE | 2019-02-13 15:37 | HP ---
Date/Time of Note Date/Time of Note DATE: 02/13/19 TIME: 15:33 Assessment/Plan VTE Prophylaxis Pharmacological prophylaxis: heparin Lines/Catheters IV Catheter Type (from Nrs): Saline Lock Assessment/Plan Hospital Course 54 yo female with paroxsymal A Fib on AC, HTN, DMII who presetns with LLE weakness and LUE nubness - Concerning for CVA. CT head ok. Awiat MRI - Neurology consult pending - PT eval A Fib: - Continue NOAC DMII - Continue metfomrin Discharge following workup Result Diagram: 02/13/19 1015 02/13/19 1015 Results 24hrs Laboratory Tests Test 02/13/19 10:15 02/13/19 10:34 02/13/19 11:20 White Blood Count 6.9 # Red Blood Count 4.53 Hemoglobin 12.4 Hematocrit 38.5 Mean Corpuscular Volume 85.0 Mean Corpuscular Hemoglobin 27.4 L Mean Corpuscular Hemoglobin Concent 32.2 Red Cell Distribution Width 14.2 Platelet Count 332 Mean Platelet Volume 9.9 Immature Granulocytes % 0.300 Neutrophils % 56.0 Lymphocytes % 35.8 Monocytes % 5.5 Eosinophils % 1.7 Basophils % 0.7 Nucleated Red Blood Cells % 0.0 Immature Granulocytes # 0.020 Neutrophils # 3.8 Lymphocytes # 2.5 Monocytes # 0.4 Eosinophils # 0.1 Basophils # 0.1 Nucleated Red Blood Cells # 0.0 Prothrombin Time 14.5 Prothrombin Time Ratio 1.1 INR International Normalized Ratio 1.12 Activated Partial Thromboplast Time 36.3 H Sodium Level 141 Potassium Level 4.2 Chloride Level 104 Carbon Dioxide Level 27 Anion Gap 10 Blood Urea Nitrogen 9 Creatinine 1.03 H Est Glomerular Filtrat Rate mL/min 56 L Glucose Level 112 Hemoglobin A1c 6.3 H Calcium Level 10.1 Creatine Kinase 72 Creatine Kinase Index 0.3 Creatinine Kinase MB (Mass) < 0.22 Troponin I < 0.012 Triglycerides Level 232 H Cholesterol Level 207 H LDL Cholesterol, Calculated 106 HDL Cholesterol 55 Cholesterol/HDL Ratio 3.7 Ethyl Alcohol Level < 10.0 H Bedside Glucose 107 Urine Opiates Screen Negative Urine Barbiturates Negative Urine Amphetamines Screen Negative Urine Benzodiazepines Screen Negative Urine Cocaine Screen Negative Urine Cannabinoids Negative HPI/ROS Admit Date/Time Admit Date/Time Feb 13, 2019 at 11:00 Hx of Present Illness 54 yo female with h/o A Fib and HTN who presents R sided numbness and weakness Patient describes symptoms starting this AM. Left leg feels week. Left arm from shoulder down feels numb, particularly numb in L fingertips. Has known L shoulder pain chornically. In ED head CT wnl. ROS Constitutional: no complaints, improved Eyes: no complaints ENT: no complaints Respiratory: no complaints Cardiovascular: no complaints Gastrointestinal: no complaints Genitourinary: no complaints Musculoskeletal: no complaints Skin: no complaints Neurologic: no complaints Endocrine: no complaints Lymphatic: no complaints Psychological: no complaints, nl mood/affect Immunologic: no complaints PMH/Family/Social Past Medical History A Fib Medications Current Medications Sodium Chloride 1,000 ml @ 80 mls/hr [id number] IV ; Start 02/13/19 at 11:00; Stop 02/13/19 at 23:29 Ondansetron HCl (Zofran Inj) 4 mg ER BRIDGE PRN IV NAUSEA/VOMITING; Start 02/13 at 11:00; Stop 02/14/19 at 10:59 Acetaminophen (Tylenol Tab) 650 mg ER BRIDGE PRN PO .MILD PAIN 1-3 OR TEMP Last administered on 02/13/19at 14:34; Admin Dose 650 MG; Start 02/13/19 at 11:00; Stop 02/14/19 at 10:59 Apixaban (Eliquis) 5 mg BID PO ; Start 02/13/19 at 21:00 Atorvastatin Calcium (Lipitor) 10 mg QHS PO ; Start 02/13/19 at 21:00 Losartan Potassium (Cozaar) 50 mg DAILY PO ; Start 02/14/19 at 09:00 Metformin HCl (Glucophage) 500 mg WITH BREAKFAST DINNE PO ; Start 02/13/19 at 18:00 Metoprolol Tartrate (Lopressor) 25 mg BID PO ; Start 02/13/19 at 21:00 Miscellaneous Information 1 ea NOTE XX ; Start 02/13/19 at 15:30 Glucose (Glutose) 15 gm Q15M PRN PO DECREASED GLUCOSE; Start 02/13/19 at 15:30 Glucose (Glutose) 22.5 gm Q15M PRN PO DECREASED GLUCOSE; Start 02/13/19 at 15:30 Dextrose (D50w Syringe) 25 ml Q15M PRN IV DECREASED GLUCOSE; Start 02/13/19 at 15:30 Dextrose (D50w Syringe) 50 ml Q15M PRN IV DECREASED GLUCOSE; Start 02/13/19 at 15:30 Glucagon (Glucagen) 1 mg Q15M PRN IM DECREASED GLUCOSE; Start 02/13/19 at 15:30 Glucose (Glutose) 15 gm Q15M PRN BUCCAL DECREASED GLUCOSE; Start 02/13/19 at 15:30 Coded Allergies: No Known Allergy (Unverified , 02/13/19) Past Surgical History Past Surgical Hx: no surgical history Family History Significant Family History: no pertinent family hx Social History Alcohol Use: none Smoking Status: Never smoker Drug Use: none Exam/Review of Systems Vital Signs Vitals Vital Signs Date Temp Pulse Resp B/P (MAP) Pulse Ox O2 O2 Flow FiO2 Time Delivery Rate 02/13/19 98.4 63 22 169/84 100 Room Air 14:53 (112) Exam Exam Aox3 Pleasant Irreg irreg JVP flat breathing comfortably CN II-XII in tact LUE with 5/5 strength. Subjective numbness in fingertips and forearm. LLE 4/5 strenght and ankle and knee RYANGRBRAULIO EDWARDS MD Feb 13, 2019 15:37
--- NOTE | 2019-02-13 16:32 | CONS ---
Assessment/Plan Assessment/Plan Hospital Course 54 F c/ reported Hx of HTN, afib s/p ablation in 2018, and DM2, who presents for evaluation of left hemiparesis and hemisensory loss, for which neurology is consulted.. Head CT is without obvious acute intracranial pathology. LDL 106 P: MRI brain to evaluate for acute ischemia Hold Eliquis for now pending the above Start asa; Continue Lipitor for secondary prevention Permissive HTN to 220/110 pending the above PT/OT/ST as necessary Glucose control and other medical management per primary Will follow Consultation Date/Type/Reason Admit Date/Time Feb 13, 2019 at 11:00 Type of Consult Neurology Reason for Consultation L sided weakness Requesting Provider: BRAULIO CHAMBERLAIN MD Date/Time of Note DATE: 02/13/19 TIME: 16:32 Hx of Present Illness 54 yo F with hx of afib, HTN, and other comorbidities who presented to the ED with c/o L sided weakness/numbness x 1 day. History was obtained from pt and chart review. She confirms the story below. It is additionally elsewhere noted: Chief Complaint LEFT SIDE BODY TINGLING SENSATION ONSET LAST NIGHT HPI This is a patient who is 54 years old who is admitted to the hospital 2 weeks ago with new onset A. fib and is taking an anticoagulant but she is not sure wh ich one she does not know if it is Coumadin Eliquis or Xarelto. She stated that around 5:36 PM yesterday she noticed that her left arm and leg started to feel tingly but not week. She says she tried to wait and see if it would go away and went ahead and went to bed last night. When she woke this morning at around 5:30 AM to go to the restroom she was walking to the bathroom and she noticed that her left arm and leg felt weak. 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 No slurred speech or headache or facial droop. Her last creatinine is 1.48 negative unless noted otherwise in HPI Eyes: redness Exam/Review of Systems Exam Vitals Vital Signs Date Temp Pulse Resp B/P (MAP) Pulse Ox O2 O2 Flow FiO2 Time Delivery Rate 02/13/19 98.4 63 22 169/84 100 Room Air 14:53 (112) Exam PE: Gen Appearance: No Apparent Distress HEENT: Normocephalic Cardiovascular: Regular rate Lungs: Clear bilaterally Abdomen: Soft Extremities: Dry NE: The patient was alert and oriented.. Language was normal. Fund of knowledge was normal. Pupils were equal and reactive to light. There was no afferent pupillary defect. Visual brooks were normal. Funduscopic examination was limited. Extra-ocular movements were full. Ptosis was absent. There was no nystagmus. Facial sensation was normal. Face was symmetric with normal strength. Hearing was intact. Palate movements were normal. Neck strength was normal. There was normal tongue bulk and speed of movement. Tone was normal. Muscle bulk was normal. I did not see fasciculations. Arms and legs were weak on the L. Vibration sensation was normal was diminished on the L side. Temperature and pinprick sensation was normal. Rapid alternating movements were normal. There was no dysmetria. There was no intention tremor. Gait was deferred due to bedrest. Arm and leg reflexes were 2+ and symmetric. Richmond's sign was absent. Plantar responses were flexor. Results Result Diagram: 02/13/19 1015 02/13/19 1015 Results 24hrs Laboratory Tests Test 02/13/19 10:15 02/13/19 10:34 02/13/19 11:20 White Blood Count 6.9 # Red Blood Count 4.53 Hemoglobin 12.4 Hematocrit 38.5 Mean Corpuscular Volume 85.0 Mean Corpuscular Hemoglobin 27.4 L Mean Corpuscular Hemoglobin Concent 32.2 Red Cell Distribution Width 14.2 Platelet Count 332 Mean Platelet Volume 9.9 Immature Granulocytes % 0.300 Neutrophils % 56.0 Lymphocytes % 35.8 Monocytes % 5.5 Eosinophils % 1.7 Basophils % 0.7 Nucleated Red Blood Cells % 0.0 Immature Granulocytes # 0.020 Neutrophils # 3.8 Lymphocytes # 2.5 Monocytes # 0.4 Eosinophils # 0.1 Basophils # 0.1 Nucleated Red Blood Cells # 0.0 Prothrombin Time 14.5 Prothrombin Time Ratio 1.1 INR International Normalized Ratio 1.12 Activated Partial Thromboplast Time 36.3 H Sodium Level 141 Potassium Level 4.2 Chloride Level 104 Carbon Dioxide Level 27 Anion Gap 10 Blood Urea Nitrogen 9 Creatinine 1.03 H Est Glomerular Filtrat Rate mL/min 56 L Glucose Level 112 Hemoglobin A1c 6.3 H Calcium Level 10.1 Creatine Kinase 72 Creatine Kinase Index 0.3 Creatinine Kinase MB (Mass) < 0.22 Troponin I < 0.012 Triglycerides Level 232 H Cholesterol Level 207 H LDL Cholesterol, Calculated 106 HDL Cholesterol 55 Cholesterol/HDL Ratio 3.7 Ethyl Alcohol Level < 10.0 H Bedside Glucose 107 Urine Opiates Screen Negative Urine Barbiturates Negative Urine Amphetamines Screen Negative Urine Benzodiazepines Screen Negative Urine Cocaine Screen Negative Urine Cannabinoids Negative Medications Medication Current Medications Sodium Chloride 1,000 ml @ 80 mls/hr [id number] IV ; Start 02/13/19 at 11:00; Stop 02/13/19 at 23:29 Ondansetron HCl (Zofran Inj) 4 mg ER BRIDGE PRN IV NAUSEA/VOMITING; Start 02/13/19 at 11:00; Stop 02/14/19 at 10:59 Acetaminophen (Tylenol Tab) 650 mg ER BRIDGE PRN PO .MILD PAIN 1-3 OR TEMP Last administered on 02/13/19at 14:34; Admin Dose 650 MG; Start 02/13/19 at 11:00; Stop 02/14/19 at 10:59 Apixaban (Eliquis) 5 mg BID PO ; Start 02/13/19 at 21:00 Atorvastatin Calcium (Lipitor) 10 mg QHS PO ; Start 02/13/19 at 21:00 Losartan Potassium (Cozaar) 50 mg DAILY PO ; Start 02/14/19 at 09:00 Metformin HCl (Glucophage) 500 mg WITH BREAKFAST DINNE PO ; Start 02/13/19 at 18:00 Metoprolol Tartrate (Lopressor) 25 mg BID PO ; Start 02/13/19 at 21:00 Miscellaneous Information 1 ea NOTE XX ; Start 02/13/19 at 15:30 Glucose (Glutose) 15 gm Q15M PRN PO DECREASED GLUCOSE; Start 02/13/19 at 15:30 Glucose (Glutose) 22.5 gm Q15M PRN PO DECREASED GLUCOSE; Start 02/13/19 at 15:30 Dextrose (D50w Syringe) 25 ml Q15M PRN IV DECREASED GLUCOSE; Start 02/13/19 at 15:30 Dextrose (D50w Syringe) 50 ml Q15M PRN IV DECREASED GLUCOSE; Start 02/13/19 at 15:30 Glucagon (Glucagen) 1 mg Q15M PRN IM DECREASED GLUCOSE; Start 02/13/19 at 15:30 Glucose (Glutose) 15 gm Q15M PRN BUCCAL DECREASED GLUCOSE; Start 02/13/19 at 15:30 IV Flush (NS 3 ml) 3 ml PER PROTOCOL IV ; Start 02/13/19 at 15:30 Past Medical History reviewed Home Meds Active Scripts Metoprolol Tartrate* (Lopressor*) 25 Mg Tab, 25 MG PO BID for 60 Days, #120 TAB Prov:BRAULIO CHAMBERLAIN MD 02/01/19 Apixaban* (Eliquis*) 5 Mg Tablet, 5 MG PO BID for 60 Days, #120 TAB 4 Refills Prov:BRAULIO CHAMBERLAIN MD 02/01/19 Reported Medications Losartan Potassium* (Losartan Potassium*) 50 Mg Tablet, 50 MG PO DAILY, TAB 02/13/19 Metformin* (Glucophage*) 500 Mg Tab, 500 MG PO WITH BREAKFAST DINNE, #30 TAB 01/29/19 Atorvastatin Calcium* (Atorvastatin Calcium*) 20 Mg Tablet, 10 MG PO QHS, #30 TAB 01/29/19 Medications Current Medications Sodium Chloride 1,000 ml @ 80 mls/hr [id number] IV ; Start 02/13/19 at 11:00; Stop 02/13/19 at 23:29 Ondansetron HCl (Zofran Inj) 4 mg ER BRIDGE PRN IV NAUSEA/VOMITING; Start 02/13/19 at 11:00; Stop 02/14/19 at 10:59 Acetaminophen (Tylenol Tab) 650 mg ER BRIDGE PRN PO .MILD PAIN 1-3 OR TEMP Last administered on 02/13/19at 14:34; Admin Dose 650 MG; Start 02/13/19 at 11:00; Stop 02/14/19 at 10:59 Apixaban (Eliquis) 5 mg BID PO ; Start 02/13/19 at 21:00 Atorvastatin Calcium (Lipitor) 10 mg QHS PO ; Start 02/13/19 at 21:00 Losartan Potassium (Cozaar) 50 mg DAILY PO ; Start 02/14/19 at 09:00 Metformin HCl (Glucophage) 500 mg WITH BREAKFAST DINNE PO ; Start 02/13/19 at 18:00 Metoprolol Tartrate (Lopressor) 25 mg BID PO ; Start 02/13/19 at 21:00 Miscellaneous Information 1 ea NOTE XX ; Start 4/2/19 at 15:30 Glucose (Glutose) 15 gm Q15M PRN PO DECREASED GLUCOSE; Start 02/13/19 at 15:30 Glucose (Glutose) 22.5 gm Q15M PRN PO DECREASED GLUCOSE; Start 02/13/19 at 15:30 Dextrose (D50w Syringe) 25 ml Q15M PRN IV DECREASED GLUCOSE; Start 02/13/19 at 15:30 Dextrose (D50w Syringe) 50 ml Q15M PRN IV DECREASED GLUCOSE; Start 02/13/19 at 15:30 Glucagon (Glucagen) 1 mg Q15M PRN IM DECREASED GLUCOSE; Start 02/13/19 at 15:30 Glucose (Glutose) 15 gm Q15M PRN BUCCAL DECREASED GLUCOSE; Start 02/13/19 at 15:30 IV Flush (NS 3 ml) 3 ml PER PROTOCOL IV ; Start 02/13/19 at 15:30 Allergies: Coded Allergies: No Known Allergy (Unverified , 02/13/19) Past Surgical History reviewed Past Surgical Hx: no surgical history Social History reviewed Alcohol Use: none Smoking Status: Never smoker Drug Use: none KELY PIERSON NP Feb 13, 2019 16:32 ALFONSO SOTO Feb 13, 2019 17:03
[2019-02-13 16:54] VITALS: PULSE 73
[2019-02-13] MEDS: LORAZEPAM 2 MG INJ IV PRN (18:07)
[2019-02-13] MEDS: metFORMIN 500 MG TAB PO SCH (18:09)
[2019-02-13 20:00] VITALS: BP 153/89; PULSE 67; PULSE 89; RESP 16
[2019-02-13] MEDS ORDERED: LORAZEPAM 2 MG INJ IV ONE (20:30)
[2019-02-13] MEDS: ASPIRIN 81 MG TAB PO SCH (20:46)
[2019-02-13] MEDS: ATORVASTATIN 10 MG TAB PO SCH (20:46)
[2019-02-13] MEDS: METOPROLOL 25 MG TAB PO SCH (20:47)
[2019-02-13] MEDS: INSULIN ASPART [NOVOLOG] 3 ML PEN SC SCH (20:51)
[2019-02-13] MEDS ORDERED: APIXABAN 5 MG TABLET PO SCH (21:00)
[2019-02-14] VITALS (10 sets, daily range): BP systolic 119–159; BP diastolic 69–93; PULSE 67–87; RESP 16–17
--- NOTE | 2019-02-14 07:17 | CONS ---
Assessment/Plan Assessment/Plan Hospital Course 54 F c/ reported Hx of HTN, RLE DVT, afib s/p ablation in 2018, and DM2, who presents for evaluation of recurrent left hemiparesis and hemisensory loss, for which neurology is consulted.. The clinical picture could be consistent w/ stroke.. Cervical spine disease is additionally considered...especially given the episodic nature of her Sx and concurrent neck pain.. Head CT is without obvious acute intracranial pathology. LDL 106 P: Await MRI brain to evaluate for acute ischemia Add MRI C spine for further characterization Hold Eliquis for now pending the above Start asa; Continue Lipitor for secondary prevention Permissive HTN to 220/110 pending the above PT/OT/ST as necessary Glucose control and other medical management per primary Will follow Consultation Date/Type/Reason Admit Date/Time Feb 13, 2019 at 11:00 Type of Consult Neurology Reason for Consultation L sided weakness Requesting Provider: BRAULIO CHAMBERLAIN MD Date/Time of Note DATE: 02/14/19 TIME: 07:17 24 HR Interval Summary Free Text/Dictation Continues acute care Exam Vital Signs Vitals Vital Signs Date Temp Pulse Resp B/P (MAP) Pulse Ox O2 O2 Flow FiO2 Time Delivery Rate 02/14/19 97.9 70 16 129/73 99 07:11 (91) 02/13/19 Room Air 14:53 Exam PE: Gen Appearance: No Apparent Distress HEENT: Normocephalic Cardiovascular: Regular rate Abdomen: Soft Extremities: Dry NE: The patient was alert and oriented. Language was normal. Fund of knowledge was normal. Pupils were equal and reactive to light. There was no afferent pupillary defect. Visual brooks were normal. Funduscopic examination was limited. Extra-ocular movements were full. Ptosis was absent. There was no nystagmus. Facial sensation was normal. Face was symmetric with normal strength. Hearing was intact. Palate movements were normal. Neck strength was normal. There was normal tongue bulk and speed of movement. Tone was normal. Muscle bulk was normal. I did not see fasciculations. Arms and legs were strong. Vibration sensation was normal. Temperature and pinprick sensation was normal. Rapid alternating movements were normal. There was no dysmetria. There was no intention tremor. Gait was deferred due to bedrest. Arm and leg reflexes were symmetric. Richmond's sign was absent. Plantar responses were flexor. ALFONSO SOTO Feb 14, 2019 07:17
[2019-02-14] MEDS: INSULIN ASPART [NOVOLOG] 3 ML PEN SC SCH ×4 (07:38→20:44)
[2019-02-14] MEDS: METOPROLOL 25 MG TAB PO SCH ×2 (08:19→20:41)
[2019-02-14] MEDS: ASPIRIN 81 MG TAB PO SCH (08:19)
[2019-02-14] MEDS: LOSARTAN 50 MG TAB PO SCH (08:20)
[2019-02-14] MEDS: metFORMIN 500 MG TAB PO SCH ×2 (08:22→17:16)
--- NOTE | 2019-02-14 17:19 | PN ---
Date/Time of Note Date/Time of Note DATE: 02/14/19 TIME: 17:18 Assessment/Plan VTE Prophylaxis Risk score (from Nsg)>0 risk: 1 SCD applied (from Nsg): Yes Pharmacological prophylaxis: heparin Lines/Catheters IV Catheter Type (from Nrsg): Saline Lock Urinary Cath still in place: No Assessment/Plan Hospital Course 54 yo female with paroxsymal A Fib on AC, HTN, DMII who presetns with LLE weakness and LUE nubness - MRI head is normal - Awaiting c-spine MRI - Neurology consulted - PT eval A Fib: - Continue NOAC, metformin DMII - Continue metformrin Discharge following workup Result Diagram: 02/13/19 1015 02/13/19 1015 Results 24hrs Laboratory Tests Test 02/13/19 18:08 02/13/19 20:49 02/14/19 05:33 02/14/19 07:35 Bedside Glucose 84 129 98 Triglycerides Level 206 H Cholesterol Level 192 LDL Cholesterol, 103 Calculated HDL Cholesterol 48 Cholesterol/HDL Ratio 4.0 Test 02/14/19 09:14 02/14/19 12:02 Lab Scanned Report LAB Bedside Glucose 112 Subjective 24 Hr Interval Summary Free Text/Dictation Awaiting C spine MRI Doing well, stable symptoms Exam/Review of Systems Exam Vitals Vital Signs Date Temp Pulse Resp B/P (MAP) Pulse Ox O2 O2 Flow FiO2 Time Delivery Rate 02/14/19 97.5 71 16 159/93 100 15:42 (115) 02/13/19 Room Air 14:53 Intake and Output 02/13/19 02/13/19 02/14/19 1515:00 23:00 07:00 IntakeIntake Total 350 ml BalanceBalance 350 ml Exam Aox3 Pleasnt RRR CTAB Soft nt ntd wwp no cce Results Results 24hrs Laboratory Tests Test 02/13/19 18:08 02/13/19 20:49 02/14/19 05:33 02/14/19 07:35 Bedside Glucose 84 129 98 Triglycerides Level 206 H Cholesterol Level 192 LDL Cholesterol, 103 Calculated HDL Cholesterol 48 Cholesterol/HDL Ratio 4.0 Test 02/14/19 09:14 02/14/19 12:02 Lab Scanned Report LAB Bedside Glucose 112 Medications Medication Current Medications Atorvastatin Calcium (Lipitor) 10 mg QHS PO Last administered on 02/13/19at 20:46; Admin Dose 10 MG; Start 02/13/19 at 21:00 Losartan Potassium (Cozaar) 50 mg DAILY PO Last administered on 02/14/19at 08:20; Admin Dose 50 MG; Start 02/14/19 at 09:00 Metformin HCl (Glucophage) 500 mg WITH BREAKFAST DINNE PO Last administered on 02/14/19at 17:16; Admin Dose 500 MG; Start 02/13/19 at 18:00 Metoprolol Tartrate (Lopressor) 25 mg BID PO Last administered on 02/14/19at 08: 19; Admin Dose 25 MG; Start 02/13/19 at 21:00 Miscellaneous Information 1 ea NOTE XX ; Start 02/13/19 at 15:30 Glucose (Glutose) 15 gm Q15M PRN PO DECREASED GLUCOSE; Start 02/13/19 at 15:30 Glucose (Glutose) 22.5 gm Q15M PRN PO DECREASED GLUCOSE; Start 02/13/19 at 15:30 Dextrose (D50w Syringe) 25 ml Q15M PRN IV DECREASED GLUCOSE; Start 02/13/19 at 15:30 Dextrose (D50w Syringe) 50 ml Q15M PRN IV DECREASED GLUCOSE; Start 02/13/19 at 15:30 Glucagon (Glucagen) 1 mg Q15M PRN IM DECREASED GLUCOSE; Start 02/13/19 at 15:30 Glucose (Glutose) 15 gm Q15M PRN BUCCAL DECREASED GLUCOSE; Start 02/13/19 at 15:30 IV Flush (NS 3 ml) 3 ml PER PROTOCOL IV ; Start 02/13/19 at 15:30 Lorazepam (Ativan) 1 mg Q8H PRN IV anxiety Last administered on 02/13/19at 18:07; Admin Dose 1 MG; Start 02/13/19 at 18:00 Insulin Aspart (Novolog Insulin Pen) NOVOLOG *MILD* ALGORITHM WITH MEALS BEDTIME SC ; Start 02/13/19 at 21:00 Apixaban (Eliquis) 5 mg BID PO ; Start 02/14/19 at 21:00 BRAULIO CHAMBERLAIN MD Feb 14, 2019 17:19
[2019-02-14] MEDS: APIXABAN 5 MG TABLET PO SCH (20:40)
[2019-02-14] MEDS: ATORVASTATIN 10 MG TAB PO SCH (20:41)
[2019-02-14] MEDS: LORAZEPAM 2 MG INJ IV PRN (21:17)
[2019-02-14] MEDS: HYDROmorphONE 0.5 MG/0.5 ML SYG IV PRN (23:14)
[2019-02-15] VITALS (14 sets, daily range): BP systolic 133–160; BP diastolic 72–121; PULSE 51–84; RESP 18–19
[2019-02-15] MEDS: INSULIN ASPART [NOVOLOG] 3 ML PEN SC SCH ×4 (07:49→20:32)
[2019-02-15] MEDS: metFORMIN 500 MG TAB PO SCH ×2 (07:50→17:29)
[2019-02-15] MEDS: METOPROLOL 25 MG TAB PO SCH ×2 (08:06→20:39)
[2019-02-15] MEDS: APIXABAN 5 MG TABLET PO SCH ×2 (08:06→20:41)
[2019-02-15] MEDS: LOSARTAN 50 MG TAB PO SCH (08:07)
[2019-02-15] MEDS: HYDROmorphONE 0.5 MG/0.5 ML SYG IV PRN (10:32)
--- NOTE | 2019-02-15 14:16 | CONS ---
Assessment/Plan Assessment/Plan Hospital Course 54 F c/ reported Hx of HTN, RLE DVT, afib s/p ablation in 2018, and DM2, who presents for evaluation of recurrent left hemiparesis and hemisensory loss, for which neurology is consulted.. The clinical picture was initially concerning for stroke; however, MRI brain is reassuringly negative for acute ischemia or other acute pathology. Cervical spine disease was additionally considered; MRI C spine confirms mild to moderate diffuse degenerative changes worst at C6-7...without significant central canal stenosis.. LDL 106 P: Continue Eliquis for primary stroke prevention in the context of paroxysmal afib PT/OT/ST as tolerated Other management per primary Neurologically cleared for discharge w/ outpatient spine surgery evaluation as desired.. Consultation Date/Type/Reason Admit Date/Time Feb 13, 2019 at 11:00 Type of Consult Neurology Reason for Consultation L sided weakness Requesting Provider: BRAULIO CHAMBERLAIN MD Date/Time of Note DATE: 02/15/19 TIME: 14:14 24 HR Interval Summary Free Text/Dictation s/p MRI C spine Exam Vital Signs Vitals Vital Signs Date Temp Pulse Resp B/P (MAP) Pulse Ox O2 O2 Flow FiO2 Time Delivery Rate 02/15/19 68 12:41 02/15/19 97.7 19 149/99 98 07:43 (116) 02/13/19 Room Air 14:53 Intake and Output 02/14/19 02/14/19 02/15/19 1515:00 23:00 07:00 IntakeIntake Total 950 ml 200 ml BalanceBalance 950 ml 200 ml Exam PE: Gen Appearance: No Apparent Distress HEENT: Normocephalic Cardiovascular: Regular rate Abdomen: Soft Extremities: Dry NE: The patient was alert and oriented. Language was normal. Fund of knowledge was normal. Pupils were equal and reactive to light. There was no afferent pupillary defect. Visual brooks were normal. Funduscopic examination was limited. Extra-ocular movements were full. Ptosis was absent. There was no nystagmus. Facial sensation was normal. Face was symmetric with normal strength. Hearing was intact. Palate movements were normal. Neck strength was normal. There was normal tongue bulk and speed of movement. Tone was normal. Muscle bulk was normal. I did not see fasciculations. Arms and legs were strong (L>R). Vibration sensation was normal. Temperature and pinprick sensation was normal. Rapid alternating movements were normal. There was no dysmetria. There was no intention tremor. Gait was deferred due to bedrest. Arm and leg reflexes were symmetric. Richmond's sign was absent. Plantar responses were flexor. ALFONSO SOTO Feb 15, 2019 14:16 KELY PIERSON NP Feb 15, 2019 15:04
--- NOTE | 2019-02-15 14:45 | PDOCDIS ---
Discharge Instructions DIAGNOSIS Discharge Diagnosis Cervical disc disease CONDITION [id number] Patient Condition: [id number] Stable FOLLOW UP/APPOINTMENTS Follow-up Plan Make an appointment with a physical therapist You can also see Dr Metcalf in her clinic for further care. Her number is BRAULIO CHAMBERLAIN MD Feb 15, 2019 14:45
--- NOTE | 2019-02-15 15:00 | DS ---
Date/Time of Note Date/Time of Note DATE: 02/15/19 TIME: 14:59 Discharge Summary Admission/Discharge Info Admit Date/Time Feb 13, 2019 at 11:00 Discharge Date/Time Discharge Diagnosis Cervical disc disease Patient Condition: Stable Hx of Present Illness 54 yo female with h/o A Fib and HTN who presents R sided numbness and weakness Patient describes symptoms starting this AM. Left leg feels week. Left arm from shoulder down feels numb, particularly numb in L fingertips. Has known L shoulder pain chornically. In ED head CT wnl. Hospital Course 54 yo female with paroxsymal A Fib on AC, HTN, DMII who presetns with LLE weakness and LUE nubness - MRI head is normal - c-spine MRI showed mild degnerative disease without cord compression. Neurology consulted who recommended outpatient PT and possible neurosurgical evalaution - PT eval A Fib: - Continueed on NOAC and metoprolol DMII - Continued on metformrin Home Meds Active Scripts Metoprolol Tartrate* (Lopressor*) 25 Mg Tab, 25 MG PO BID for 60 Days, #120 TAB Prov:BRAULIO CHAMBERLAIN MD 02/01/19 Apixaban* (Eliquis*) 5 Mg Tablet, 5 MG PO BID for 60 Days, #120 TAB 4 Refills Prov:BRAULIO CHAMBERLAIN MD 02/01/19 Reported Medications Losartan Potassium* (Losartan Potassium*) 50 Mg Tablet, 50 MG PO DAILY, TAB 02/13/19 Metformin* (Glucophage*) 500 Mg Tab, 500 MG PO WITH BREAKFAST DINNE, #30 TAB 01/29/19 Atorvastatin Calcium* (Atorvastatin Calcium*) 20 Mg Tablet, 10 MG PO QHS, #30 TAB 01/29/19 Follow-up Plan Make an appointment with a physical therapist You can also see Dr Metcalf in her clinic for further care. Her number is Primary Care Provider Care Physician No Primary Pending Labs Laboratory Tests Test 02/14/19 17:15 02/14/19 20:43 02/15/19 07:49 02/15/19 12:13 Bedside 99 100 85 85 Glucose mg/dL (70-220) mg/dL (70-220) mg/dL (70-220) mg/dL (70-220) BRAULIO CHAMBERLAIN MD Feb 15, 2019 15:00
[2019-02-15] MEDS: ATORVASTATIN 10 MG TAB PO SCH (20:41)
[2019-02-16 00:23] VITALS: PULSE 66
[2019-02-16 00:30] VITALS: BP 137/90; PULSE 77; RESP 18
[2019-02-16 04:00] VITALS: BP 140/80; PULSE 91; RESP 20
[2019-02-16 04:30] VITALS: PULSE 92
[2019-02-16 07:17] VITALS: BP 130/80; PULSE 69; RESP 18
[2019-02-16] MEDS: INSULIN ASPART [NOVOLOG] 3 ML PEN SC SCH (07:49)
--- NOTE | 2019-02-16 08:05 | CONS ---
Assessment/Plan Assessment/Plan Hospital Course 54 F c/ reported Hx of HTN, RLE DVT, afib s/p ablation in 2018, and DM2, who presents for evaluation of recurrent left hemiparesis and hemisensory loss, for which neurology is consulted.. The clinical picture was initially concerning for stroke; however, MRI brain is reassuringly negative for acute ischemia or other acute pathology. Cervical spine disease was additionally considered; MRI C spine confirms mild to moderate diffuse degenerative changes worst at C6-7...without significant central canal stenosis.. LDL 106 P: Continue Eliquis for primary stroke prevention in the context of paroxysmal afib PT/OT/ST as tolerated Other management per primary May benefit from outpatient EMG/NCS for further characterization Neurologically cleared for discharge w/ outpatient spine surgery evaluation as desired.. Consultation Date/Type/Reason Admit Date/Time Feb 13, 2019 at 11:00 Type of Consult Neurology Reason for Consultation L sided weakness Requesting Provider: BRAULIO CHAMBERLAIN MD Date/Time of Note DATE: 02/16/19 TIME: 08:05 24 HR Interval Summary Free Text/Dictation Continues acute care. Awaiting discharge today. Exam Vital Signs Vitals Vital Signs Date Temp Pulse Resp B/P (MAP) Pulse Ox O2 O2 Flow FiO2 Time Delivery Rate 02/16/19 98.1 69 18 130/80 96 07:17 (97) 02/16/19 Room Air 04:00 Intake and Output 02/15/19 02/15/19 02/16/19 1515:00 23:00 07:00 IntakeIntake Total 600 ml BalanceBalance 600 ml Exam PE: Gen Appearance: No Apparent Distress HEENT: Normocephalic Cardiovascular: Regular rate Abdomen: Soft Extremities: Dry NE: The patient was alert and oriented. Language was normal. Fund of knowledge was normal. Pupils were equal and reactive to light. There was no afferent pupillary defect. Visual brooks were normal. Funduscopic examination was limited. Extra-ocular movements were full. Ptosis was absent. There was no nystagmus. Facial sensation was normal. Face was symmetric with normal strength. Hearing was intact. Palate movements were normal. Neck strength was normal. There was normal tongue bulk and speed of movement. Tone was normal. Muscle bulk was normal. I did not see fasciculations. Arms and legs were strong (L>R). Vibration sensation was normal. Temperature and pinprick sensation was normal. Rapid alternating movements were normal. There was no dysmetria. There was no intention tremor. Gait was deferred due to bedrest. Arm and leg reflexes were symmetric. Richmond's sign was absent. Plantar responses were flexor. ALFONSO SOTO Feb 16, 2019 08:05 KELY PIERSON NP Feb 16, 2019 13:18
[2019-02-16] MEDS: LOSARTAN 50 MG TAB PO SCH (08:48)
[2019-02-16] MEDS: APIXABAN 5 MG TABLET PO SCH (08:49)
[2019-02-16] MEDS: metFORMIN 500 MG TAB PO SCH (08:49)
[2019-02-16] MEDS: METOPROLOL 25 MG TAB PO SCH (08:49)
== END 2019-02-16 10:37 | disposition home or self-care (01) | DRG 552 ==
LOC: E/R 09:57 → 6WM 11:00
PROVIDERS: ADMIT Internal Medicine; ATTEND Internal Medicine
DX: M50.323 Other cervical disc degeneration at C6-C7 level (principal); G81.94 Hemiplegia, unspecified affecting left nondominant side; I48.0 Paroxysmal atrial fibrillation; I10 Essential (primary) hypertension; E11.9 Type 2 diabetes mellitus without complications; J45.909 Unspecified asthma, uncomplicated; Z79.4 Long term (current) use of insulin
CPT/HCPCS: 36415; 70450; 70551; 71045; 72156; 80048; 80061; 80307; 82550; 82553; 82962; 83036; 84484; 85025; 85610; 85730; 92610; 93005; 97116; 97162; 97165; 97530; J1170; J1815; J2060; J7030; Q9967